=== PATIENT | female | born 1930 | race Caucasian/White ===

== ENCOUNTER 2017-05-03 17:08 | Observation (INO) | payer OTHER, BC ==
[2017-05-03] MEDS ORDERED: ACETAMINOPHEN 500 MG TABLET (FP) PO ONE (17:16)
[2017-05-03 17:33] VITALS: BMI 37.1
[2017-05-03 17:50] LABS: EOSINOPHIL 1.6 % (0-4.5); MCH 31.5 pg (25.7-33.7); MCHC 32.5 g/dl (32.0-36.0); MEAN PLT VOLUME 9.6 fl (7.5-11.1); NEUTROPHILS 64.4 % (42.8-82.8); PLATELET COUNT 226 K/MM3 (134-434); RDW 13.9 % (11.6-15.6); WHITE BLOOD COUNT 6.1 K/mm3 (4.0-10.0)
[2017-05-03] MEDS ORDERED: ACETAMINOPHEN 325 MG TABLET (FP) ONE (17:56)
--- NOTE | 2017-05-03 18:08 | PDOC ---
History of Present Illness <Cruz Curry - Last Filed: 05/03/17 18:08> - General History Source: Patient Exam Limitations: No Limitations - History of Present Illness Initial Comments: 05/03/17 18:09 The patient is an 86 year old female with past medical history of hypertension, hyperlipidemia, Afib (on Coumadin) who arrives to the ED from a nursing facility s/p mechanical fall just prior to arrival. The patient states she was using her walker and fell down, striking the back of her head. She denies any LOC, change in vision, focal deficits, nausea, or vomiting. The patient denies any pain to her hips or legs. She denies any chest pain or shortness of breath. The patient denies any fever or chills. PCP: Elva Lugo Cloud Physicist: Juan Dickson Car Dispatcher: Dr. Tello <Tiffany Chandra - Last Filed: 05/03/17 18:09> <Annmarie Parada - Last Filed: 05/03/17 20:23> <Tamika Bonner - Last Filed: 05/04/17 05:48> - General Chief Complaint: Injury Stated Complaint: FALL Time Seen by Provider: 05/03/17 17:14 Past History - Past Medical History Anemia: Yes Cancer: Yes (BREAST) Cardiac Disorders: Yes (ATRIAL FIB.) CVA: Yes Dementia: Yes HTN: Yes Hypercholesterolemia: Yes Suicide Attempt (Hx): No Thyroid Disease: Yes - Immunization History Immunization Up to Date: Yes - Psycho/Social/Smoking Cessation Hx Anxiety: No Suicidal Ideation: No Smoking History: Never smoked Have you smoked in the past 12 months: No If you are a former smoker, when did you quit?: 1989 Information on smoking cessation initiated: No Hx Alcohol Use: No Drug/Substance Use Hx: No Substance Use Type: None Hx Substance Use Treatment: No <Cruz Curry - Last Filed: 05/03/17 18:08> <Tiffany Chandra - Last Filed: 05/03/17 18:09> <Annmarie Parada - Last Filed: 05/03/17 20:23> <Tamika Bonner - Last Filed: 05/04/17 05:48> - Past Medical History Allergies/Adverse Reactions: Allergies Allergy/AdvReac Type Severity Reaction Status Date / Time Penicillins Allergy Verified 05/03/17 17:16 codeine AdvReac Verified 05/03/17 17:16 epinephrine AdvReac Verified 05/03/17 17:16 Home Medications: Ambulatory Orders Acetaminophen [Mapap] 1,000 mg PO BID PRN 05/03/17 Atorvastatin Ca [Lipitor] 10 mg PO HS 05/03/17 Calcium Citrate/Magnesium/D3 [Calcium Citrate Chewable Wafer] 3 each PO BID 12/19 Cholecalciferol (Vitamin D3) [Vitamin D3] 2,000 unit PO DAILY 05/03/17 Diltiazem Cd [Cardizem Cd -] 180 mg PO DAILY 05/03/17 Escitalopram Oxalate [Lexapro -] 5 mg PO DAILY 05/03/17 Furosemide [Lasix -] 40 mg PO DAILY 05/03/17 Lactase 6,000 unit PO BID 05/03/17 Metoprolol Succinate [Toprol Xl -] 25 mg PO DAILY 05/03/17 Multivitamin [Poly-Vitamin] 1 each PO DAILY 05/03/17 Spironolactone 12.5 mg PO DAILY 05/03/17 Warfarin Sodium [Coumadin] 5 mg PO SUMO 05/03/17 Warfarin Sodium [Coumadin] 7.5 mg PO [id number] 05/03/17 Review of Systems - Review of Systems Able to Perform ROS?: Yes Comments:: 05/03/17 18:09 GENERAL/CONSTITUTIONAL: No fever or chills. No weakness. HEAD, EYES, EARS, NOSE AND THROAT: No change in vision. No ear pain or discharge. No sore throat. CARDIOVASCULAR: No chest pain or shortness of breath. RESPIRATORY: No cough, wheezing, or hemoptysis. GASTROINTESTINAL: No nausea, vomiting, diarrhea or constipation. GENITOURINARY: No dysuria, frequency, or change in urination. MUSCULOSKELETAL: No joint or muscle swelling or pain. No neck or back pain. SKIN: No rash NEUROLOGIC: No headache, vertigo, loss of consciousness, or change in strength/ sensation. ENDOCRINE: No increased thirst. No abnormal weight change. HEMATOLOGIC/LYMPHATIC: No anemia, easy bleeding, or history of blood clots. ALLERGIC/IMMUNOLOGIC: No hives or skin allergy. All Other Systems: Reviewed and Negative <Tiffany Chandra - Last Filed: 05/03/17 18:09> *Physical Exam - Vital Signs Last Vital Signs Temp Pulse Resp BP Pulse Ox 97.6 F 90 18 136/83 96 05/03/17 17:12 05/03/17 17:12 05/03/17 17:12 05/03/17 17:12 05/03/17 17:12 <AntoinetteCruz - Last Filed: 05/03/17 18:08> - Vital Signs Last Vital Signs Temp Pulse Resp BP Pulse Ox 97.6 F 90 18 136/83 96 05/03/17 17:12 05/03/17 17:12 05/03/17 17:12 05/03/17 17:12 05/03/17 17:12 - Physical Exam Comments: 05/03/17 18:10 GENERAL: Awake, alert, and fully oriented, in no acute distress HEAD: No signs of trauma EYES: PERRLA, EOMI, sclera anicteric, conjunctiva clear ENT: Auricles normal inspection, hearing grossly normal, nares patent, oropharynx clear without exudates. Moist mucosa NECK: Normal ROM, supple, no lymphadenopathy, JVD, or masses LUNGS: Breath sounds equal, clear to auscultation bilaterally. No wheezes, and no crackles HEART: Irregularly irregular. normal S1 and S2, no murmurs, rubs or gallops ABDOMEN: Soft, nontender, normoactive bowel sounds. No guarding, no rebound. No masses EXTREMITIES: Normal range of motion, no edema. No clubbing or cyanosis. No cords, erythema, or tenderness NEUROLOGICAL: Cranial nerves II through XII grossly intact. Normal speech, normal gait SKIN: Hematoma to left occipital ridge. Warm, Dry, normal turgor <Tiffany Chandra - Last Filed: 05/03/17 18:09> - Vital Signs Last Vital Signs Temp Pulse Resp BP Pulse Ox 98.2 F 84 18 141/84 97 05/03/17 20:09 05/03/17 20:09 05/03/17 20:09 05/03/17 20:09 05/03/17 20:09 <Annmarie Parada - Last Filed: 05/03/17 20:23> - Vital Signs Last Vital Signs Temp Pulse Resp BP Pulse Ox 97.6 F 90 18 136/83 96 05/03/17 17:12 05/03/17 17:12 05/03/17 17:12 05/03/17 17:12 05/03/17 17:12 <Tamika Bonner - Last Filed: 05/04/17 05:48> Heart Score/ECG Review #1 05/03/17 20:22 EKG obtained 17:26. Normal sinus rhythm at 90 bpm. Left ventricular hypertrophy with repolarization abnormality. Abnormal ECG. <Annmarie Parada - Last Filed: 05/03/17 20:23> ED Treatment Course - LABORATORY CBC & Chemistry Diagram: 05/03/17 17:44 05/03/17 17:44 - ADDITIONAL ORDERS Additional order review: 05/03/17 17:44 RBC 4.69 MCV 97.0 H MCHC 32.5 RDW 13.9 D MPV 9.6 D Neutrophils % 64.4 Lymphocytes % 19.9 Monocytes % 13.1 H Eosinophils % 1.6 Basophils % 1.0 - RADIOLOGY Radiology Studies Ordered: Category Date Time Status HEAD CT WITHOUT CONTRAST [CT] Stat CT Scan 05/03/17 17:16 Ordered CHEST X-RAY PORTABLE* [RAD] Stat Radiology 05/03/17 17:16 Taken - Medications Given in the ED: ED Medications Discontinued Medications Generic Name Dose Route Start Last Admin Trade Name Freq PRN Reason Stop Dose Admin Acetaminophen 1,000 mg 05/03/17 17:16 05/03/17 18:02 Tylenol - PO 05/03/17 17:17 1,000 mg ONCE ONE Administration <Cruz Curry - Last Filed: 05/03/17 18:08> - LABORATORY CBC & Chemistry Diagram: 05/03/17 17:44 05/03/17 17:44 - ADDITIONAL ORDERS Additional order review: 05/03/17 17:44 RBC 4.69 MCV 97.0 H MCHC 32.5 RDW 13.9 D MPV 9.6 D Neutrophils % 64.4 Lymphocytes % 19.9 Monocytes % 13.1 H Eosinophils % 1.6 Basophils % 1.0 - Medications Given in the ED: ED Medications Discontinued Medications Generic Name Dose Route Start Last Admin Trade Name Freq PRN Reason Stop Dose Admin Acetaminophen 1,000 mg 05/03/17 17:16 05/03/17 18:02 Tylenol - PO 05/03/17 17:17 1,000 mg ONCE ONE Administration <Tiffany Chandra - Last Filed: 05/03/17 18:09> - LABORATORY CBC & Chemistry Diagram: 05/03/17 17:44 05/03/17 17:44 - ADDITIONAL ORDERS Additional order review: Laboratory Results 05/03/17 05/03/17 05/03/17 18:05 17:44 17:44 INR 2.17 H D Sodium 136 Potassium 4.3 Chloride 97 L Carbon Dioxide 31 Anion Gap 8 BUN 25 H Creatinine 0.8 Creat Clearance w eGFR > 60 Random Glucose 92 Calcium 9.1 Total Bilirubin 0.8 D AST 34 D ALT 32 D Alkaline Phosphatase 107 D Creatine Kinase 272 H D CK-MB (CK-2) 3.705 H Troponin I 0.26 H B-Natriuretic Peptide 1198.84 H Total Protein 8.2 Albumin 4.1 Blood Type B NEGATIVE Antibody Screen Positive H 05/03/17 17:44 RBC 4.69 MCV 97.0 H MCHC 32.5 RDW 13.9 D MPV 9.6 D Neutrophils % 64.4 Lymphocytes % 19.9 Monocytes % 13.1 H Eosinophils % 1.6 Basophils % 1.0 - Medications Given in the ED: ED Medications Discontinued Medications Generic Name Dose Route Start Last Admin Trade Name Freq PRN Reason Stop Dose Admin Acetaminophen 1,000 mg 05/03/17 17:16 05/03/17 18:02 Tylenol - PO 05/03/17 17:17 1,000 mg ONCE ONE Administration <Annmarie Parada - Last Filed: 05/03/17 20:23> - LABORATORY CBC & Chemistry Diagram: 05/03/17 17:44 05/03/17 17:44 - ADDITIONAL ORDERS Additional order review: Laboratory Results 05/03/17 05/03/17 05/03/17 18:05 17:44 17:44 INR 2.17 H D Sodium 136 Potassium 4.3 Chloride 97 L Carbon Dioxide 31 Anion Gap 8 BUN 25 H Creatinine 0.8 Creat Clearance w eGFR > 60 Random Glucose 92 Calcium 9.1 Total Bilirubin 0.8 D AST 34 D ALT 32 D Alkaline Phosphatase 107 D Creatine Kinase 272 H D CK-MB (CK-2) 3.705 H Troponin I 0.26 H B-Natriuretic Peptide 1198.84 H Total Protein 8.2 Albumin 4.1 Blood Type B NEGATIVE Antibody Screen Positive H 05/03/17 17:44 RBC 4.69 MCV 97.0 H MCHC 32.5 RDW 13.9 D MPV 9.6 D Neutrophils % 64.4 Lymphocytes % 19.9 Monocytes % 13.1 H Eosinophils % 1.6 Basophils % 1.0 - Medications Given in the ED: ED Medications Discontinued Medications Generic Name Dose Route Start Last Admin Trade Name Amelia PRN Reason Stop Dose Admin Acetaminophen 1,000 mg 05/03/17 17:16 05/03/17 18:02 Tylenol - PO 05/03/17 17:17 1,000 mg ONCE ONE Administration <Tamika Bonner - Last Filed: 05/04/17 05:48> Medical Decision Making - Medical Decision Making 05/03/17 19:21 Patient Name: Mecca Allen THIS IS A PRELIMINARY REPORT FROM [facility] EXAM: CT head without contrast IMAGES: 167 DATE OF SERVICE: 2017-05-03 17:43: 41.0 HISTORY:Status post fall. Occipital blunt force trauma. COMPARISON: None. FINDINGS: 1. There is no evidence of an acute intracranial process, intracranial hemorrhage or mass effect. White matter changes are most suggestive of chronic post ischemic demyelination/small vessel disease. Small collections of low attenuation along the falx are most consistent with the appearance of collections of fat (normal variant). There is an approximately 9 mm extra-axial calcified mass in the left frontal parafalcine region. 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 2. Ventricular size is concordant with the degree of atrophy. 3. The visualized portions of the orbits, paranasal and mastoid sinuses are unremarkable. 4. No evidence of fracture. THIS DOCUMENT HAS BEEN ELECTRONICALLY SIGNED Blanca Marinelli MD 05/04/17 05:47 Pt has elevated troponin and cardiac enzymes and she will be admitted to telemetry. Her raveler will be consulted. INR is therapeutic, as a result we will not further treat with heparin. <Tamika Bonner - Last Filed: 05/04/17 05:48> *DC/Admit/Observation/Transfer - Attestations Physician Attestion: 05/03/17 18:08 I, Dr. Cruz Curry, attest that this document has been prepared under my direction and personally reviewed by me in its entirety. I further attest, that it accurately reflects all work, treatment, procedures and medical decision -making performed by me. <Cruz Curry - Last Filed: 05/03/17 18:08> - Attestations Scribe Attestion: 05/03/17 18:12 Documentation prepared by Tiffany Chandra, acting as medical surgical tech for Cruz Curry DO. <Tiffany Chandra - Last Filed: 05/03/17 18:09> - Attestations Scribe Attestion: 05/03/17 20:23 Documentation prepared by Annmarie Parada, acting as medical surgical tech for Tamika Bonner MD. <Annmarie Parada - Last Filed: 05/03/17 20:23> - Discharge Dispostion Admit: Yes <Tamika Bonner - Last Filed: 05/04/17 05:48> Diagnosis at time of Disposition: Myocardial infarction, Closed head injury, Fall - Discharge Dispostion Condition at time of disposition: Guarded - Referrals
[2017-05-03 18:14] LABS: ALBUMIN 4.1 g/dl (3.4-5.0); ANION GAP 8 (8-16); BILIRUBIN,TOTAL 0.8 mg/dL (0.2-1.0); CALCIUM 9.1 mg/dL (8.5-10.1); CO2 31 mmol/L (21-32); CREATININE 0.8 mg/dL (0.55-1.02); GLUCOSE,RANDOM 92 mg/dL (74-106); SGOT/AST 34 U/L (15-37); SGPT/ALT 32 U/L (12-78); TOT PROT 8.2 g/dl (6.4-8.2)
[2017-05-03 18:16] LABS: ALK PHOS 107 U/L (45-117)
[2017-05-03 18:17] LABS: TROPONIN I 0.26 ng/ml (0.00-0.05)
[2017-05-03 18:23] LABS: INR 2.17 (0.82-1.09); PROTHROMBIN TIME (PATIENT) 24.3 SEC (9.98-11.88)
--- NOTE | 2017-05-03 19:32 | PN ---
Teaching Attending Note Name of Resident: Venus Garvey ATTENDING PHYSICIAN STATEMENT I saw and evaluated the patient. I reviewed the resident's note and discussed the case with the resident. I agree with the resident's findings and plan as documented. SUBJECTIVE: 86 F with pmhx of HTN, HLD, Afib (on Coumadin), hx of prior falls who presents post mechanical fall. No chest paib, pressure or shortness of breath OBJECTIVE: Physical: VS: Vital Signs Period Temp Pulse Resp BP Sys/Davis Pulse Ox Last 24 Hr 97.6 F 90 18 136/83 96 GEN: NAD, resting in bed HEENT: NCAT, PERRL,tenderness L. occipital area CARD: RRR S1, S2 RESP: CTAB ABD: BS X4, NTD to palpation EXT: - C/C/E CBCD WBC 6.1 K/mm3 (4.0-10.0) 05/03/17 17:44 RBC 4.69 M/mm3 (3.60-5.2) 05/03/17 17:44 Hgb 14.8 GM/dL (10.7-15.3) D 05/03/17 17:44 Hct 45.4 % (32.4-45.2) H D 05/03/17 17:44 MCV 97.0 fl (80-96) H 05/03/17 17:44 MCHC 32.5 g/dl (32.0-36.0) 05/03/17 17:44 RDW 13.9 % (11.6-15.6) D 05/03/17 17:44 Plt Count 226 K/MM3 (134-434) 05/03/17 17:44 MPV 9.6 fl (7.5-11.1) D 05/03/17 17:44 CMP Sodium 136 mmol/L (136-145) 05/03/17 17:44 Potassium 4.3 mmol/L (3.5-5.1) 05/03/17 17:44 Chloride 97 mmol/L (98-107) L 05/03/17 17:44 Carbon Dioxide 31 mmol/L (21-32) 05/03/17 17:44 Anion Gap 8 (8-16) 05/03/17 17:44 BUN 25 mg/dL (7-18) H 07/02/17 17:44 Creatinine 0.8 mg/dL (0.55-1.02) 05/03/17 17:44 Creat Clearance w eGFR > 60 (>60) 05/03/17 17:44 Random Glucose 92 mg/dL (74-106) 05/03/17 17:44 Calcium 9.1 mg/dL (8.5-10.1) 05/03/17 17:44 Total Bilirubin 0.8 mg/dL (0.2-1.0) D 05/03/17 17:44 AST 34 U/L (15-37) D 05/03/17 17:44 ALT 32 U/L (12-78) D 05/03/17 17:44 Alkaline Phosphatase 107 U/L (45-117) D 05/03/17 17:44 Total Protein 8.2 g/dl (6.4-8.2) 05/03/17 17:44 Albumin 4.1 g/dl (3.4-5.0) 05/03/17 17:44 CARDIAC ENZYMES Creatine Kinase 272 IU/L (26-192) H D 05/03/17 17:44 Troponin I 0.26 ng/ml (0.00-0.05) H 05/03/17 17:44 CT Head- Negative for any acute process 9 mm calcified meningioma EKG: No acute ST-T changes M: CT head without contrast IMAGES: 167 DATE OF SERVICE: 2017-05-03 17:43: 41.0 HISTORY:Status post fall. Occipital blunt force trauma. COMPARISON: None. FINDINGS: 1. There is no evidence of an acute intracranial process, intracranial hemorrhage or mass effect. White matter changes are most suggestive of chronic post ischemic demyelination/small vessel disease. Small collections of low attenuation along the falx are most consistent with the appearance of collections of fat (normal variant). There is an approximately 9 mm extra-axial calcified mass in the left frontal parafalcine region. 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 2. Ventricular size is concordant with the degree of atrophy. 3. The visualized portions of the orbits, paranasal and mastoid sinuses are unremarkable. 4. No evidence of fracture. THIS DOCUMENT HAS BEEN ELECTRONICALLY SIGNED Blanca Marinelli MD ASSESSMENT AND PLAN: 86 F with HTN, HLD, Afib (on Coumadin) who presents post mechanical fall. 1.) Mechanical fall - Hold coumadin - Repeat CT Head in 12 hours - Repeat CBC/ Coags in AM - Type and screen - PT eval - Fall Percautions 2.) Increased Troponin - Mild, Possible demand - Trend repeat EKG- Echo complete - Monitor on tele - Cardiology consult 3.) HTN - C/W home meds 4.) Afib - C/w home meds - [id number] - Hold Coumadin for now in light of fall, cardio eval for cont Coumadin with increased falls 5.) Diastolic CHF - Compensated 6.) DVt Ppx - Low risk -SCD Rest as per resident note Place in Med- Tele
--- NOTE | 2017-05-03 20:17 | HP ---
CHIEF COMPLAINT: Mechanical Fall PCP: Dr. Elva Lugo HISTORY OF PRESENT ILLNESS: Patient is an 86 year old female with a significant PMHx of multiple prior falls , A.fib (On Coumadin), prior CVA, Diastolic CHF who was brought from [facility] s/p mechanical fall. Patient reports using a walker at baseline. Patient states today around 15:00 she was trying to open the door when she lost her balance and fell down, hitting the back of her head. Patient denies any dizziness, loss of consciousness, change in vision, vertigo, aura, seizure before, during or after the fall. Patient however denies any fever, chills, nausea, vomiting, acute vision changes, dizziness, headaches, chest pain, palpitations, diaphoresis, shortness of breath. PHYSICAL EXAMINATION Vital Signs - 24 hr 05/03/17 05/03/17 05/03/17 17:12 19:59 20:09 Temperature 97.6 F 98.2 F Pulse Rate 90 Pulse Rate [ 84 Right Radial] Respiratory 18 18 18 Rate Blood Pressure 136/83 Blood Pressure 141/84 [Left Arm] O2 Sat by Pulse 96 97 Oximetry (%) GENERAL: Awake, alert, and fully oriented, in no acute distress. HEAD: Normal with no signs of trauma. No hematoma. EYES: (-) [place] eyes EARS, NOSE, THROAT: (-) Liang's sign, Moist mucous membranes. NECK: Normal range of motion, supple without lymphadenopathy, JVD, or masses. LUNGS: Breath sounds equal, clear to auscultation bilaterally. No wheezes, and no crackles. No accessory muscle use. HEART: Regular rate and rhythm, normal S1 and S2 without murmur, rub or gallop. ABDOMEN: Soft, nontender, not distended, normoactive bowel sounds, no guarding, no rebound, no masses. LOWER EXTREMITIES: Chronic venous stasis. 2+ pulses, No peripheral edema. IMAGES: Head CT (05/03/17): 1. There is no evidence of an acute intracranial process, intracranial hemorrhage or mass effect. White matter changes are most suggestive of chronic post ischemic demyelination/small vessel disease. Small collections of low attenuation along the falx are most consistent with the appearance of collections of fat (normal variant). There is an approximately 9 mm extra-axial calcified mass in the left frontal parafalcine region. 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 2. Ventricular size is concordant with the degree of atrophy. 3. The visualized portions of the orbits, paranasal and mastoid sinuses are unremarkable. 4. No evidence of fracture. Chest X-Ray (05/03/17): No acute pathology ASSESSMENT/PLAN: Patient is an 86 year old female with a PMHx of HTN, HLD, A.FIB (On Coumadin), Frequent falls, Diastolic CHF, Depression who presents s/p fall and was found to have elevated troponin. Patient admitted for further monitoring and management. Head Trauma s/p Mechanical Fall-Acute -CT negative for hemorrhage or acute pathology -Repeat CT in 12 hours for any changes -Type and Screen with repeat CBC and coagulations -Hold Anticoagulation Warfarin. Will discuss with cardiology on risks and benefits of stopping AC due to fall risk -Fall precaution -PT -Cardiology consult placed Elevated Troponins-Acute -Initial trop 0.26. Second 0.25, Will repeat third in 6 hours -Repeat EKG in the morning -ECHO ordered -Cardiology consult placed -Continue Cardiac Monitoring A.Fib On Coumadin-Chronic -CHADSVASC score of 7 -Will Hold Coumadin due to patient's high fall risk -Continue home medications Cardizem for rate control Diastolic Heart Failure- Chronic -In no acute exacerbation -ECHO ordered -Continue home medications Lasix, Spironolactone, Metoprolol HTN- Continue with home medication Metoprolol. Monitor BP HLD- Continue with florencia medication Lipitor Depression- Continue with Florencia medication Lexapro Prophylaxis- SCD's for DVT. Coumadin on Hold Disposition- Awaiting cardiology consult Visit type - Emergency Visit Emergency Visit: Yes ED Registration Date: 05/03/17 Care time: The patient presented to the Emergency Department on the above date and was hospitalized for further evaluation of their emergent condition. - New Patient This patient is new to me today: Yes Date on this admission: 05/04/17 - Critical Care Critical Care patient: No
[2017-05-03] MEDS ORDERED: ACETAMINOPHEN 500 MG TABLET (FP) PO PRN (21:10)
[2017-05-03] MEDS ORDERED: D3 PO SCH (22:00)
[2017-05-03] MEDS ORDERED: LACTASE PO SCH (22:00)
[2017-05-03] MEDS ORDERED: [UNRECOGNIZED DRUG - OTHER] PO SCH (22:00)
[2017-05-03] MEDS ORDERED: ATORVASTATIN CA 10 MG TABLET (FP) PO SCH (22:00)
[2017-05-03] MEDS ORDERED: MAGNESIUM PO SCH (22:00)
[2017-05-03] MEDS ORDERED: CALCIUM CITRATE PO SCH (22:00)
--- NOTE | 2017-05-03 22:23 | HP ---
CHIEF COMPLAINT: status post mechanical fall was presented to to the ER from alf. PCP: Elva Lugo HISTORY OF PRESENT ILLNESS:An 86 year old white female with past medical history of hypertension, hyperlipidemia, Afib (on Coumadin) who arrives to the ED from a nursing facility([facility] nursing [facility]) s/p mechanical fall around 3 pm today. The patient states she was using her walker to open the door and fell down, hitting the back of her head. She denies any LOC,headache, change in vision,Aura, or any focal deficits,She denies nausea,vomiting,orthostatic hypotension, dizziness or vertigo. The patient denies any pain to her hips or legs.she reports multiple mechanical falls last year. She denies any chest pain or shortness of breath. The patient denies any fever or chills.She denies any history of seizures, light headedness, abdominal pain, diarrhea or constipation. No urinary symptoms were reported. ER course was notable for: (1) Troponin was found to be little elevated 0.26 (2) Head CT scan was ordered which found to be negative for any acute changes or hemorrhage. (3) Acetaminophen 1000 mg PO once was given on admission . Recent Travel:No PAST MEDICAL HISTORY: she has a history of uncontrolled HTN, Afib, Hyperlipidemia,Diastolic CHF,sleep apnea, right breast cancer 6 years ago(s/p lumpectomy), Lower extremities cellulites last year. PAST SURGICAL HISTORY: Right breast lumpectomy 6 years ago. Social History: Smokin pack/day for 30 years, she quit 40 years ago. Alcohol:No Drugs: No Family History: Mother history of Alzheimer.Father history of HTN and COPD. Allergies: Penicillins Allergy (Verified 05/03/17 17:16) codeine Adverse Reaction (Verified 05/03/17 17:16) epinephrine Adverse Reaction (Verified 05/03/17 17:16) HOME MEDICATIONS: Home Medications Medication Instructions Recorded Acetaminophen [Mapap] 1,000 mg PO BID PRN 05/03/17 Atorvastatin Ca [Lipitor] 10 mg PO HS 05/03/17 Calcium Citrate/Magnesium/D3 3 each PO BID 05/03/17 [Calcium Citrate Chewable Wafer] Cholecalciferol (Vitamin D3) 2,000 unit PO DAILY 05/03/17 [Vitamin D3] Diltiazem Cd [Cardizem Cd -] 180 mg PO DAILY 05/03/17 Escitalopram Oxalate [Lexapro -] 5 mg PO DAILY 05/03/17 Furosemide [Lasix -] 40 mg PO DAILY 05/03/17 Lactase 6,000 unit PO BID 05/03/17 Metoprolol Succinate [Toprol Xl -] 25 mg PO DAILY 05/03/17 Multivitamin [Poly-Vitamin] 1 each PO DAILY 05/03/17 Spironolactone 12.5 mg PO DAILY 05/03/17 Warfarin Sodium [Coumadin] 5 mg PO SUMO 05/03/17 Warfarin Sodium [Coumadin] 7.5 mg PO WE05/03/17 REVIEW OF SYSTEMS CONSTITUTIONAL: Absent: No fever, chills, diaphoresis, generalized weakness, malaise, loss of appetite, weight change HEENT: Absent: No rhinorrhea, nasal congestion, throat pain, throat swelling, difficulty swallowing, mouth swelling, ear pain, eye pain, visual changes CARDIOVASCULAR: Absent: No chest pain, syncope, palpitations, + Afib ,no lightheadedness, trace peripheral edema RESPIRATORY: Absent: NO cough, shortness of breath,, no wheezing, stridor, hemoptysis GASTROINTESTINAL: Absent: NO abdominal pain, abdominal distension, nausea, vomiting, diarrhea, constipation, melena, hematochezia GENITOURINARY: Absent:No dysuria, frequency, urgency, hesitancy, hematuria, flank pain, genital pain MUSCULOSKELETAL: Absent: NO myalgia, arthralgia, joint swelling, back pain, neck pain, H/O right shoulder rotator cuff tear. SKIN: Absent: No rash, itching, pallor, B/L LE erythema . HEMATOLOGIC/IMMUNOLOGIC: patient is on Coumadin,NO lymphadenopathy, no recent infections ENDOCRINE: denies unexplained weight gain, unexplained weight loss, heat intolerance, cold intolerance NEUROLOGIC: Absent: No headache, focal weakness or paresthesias, dizziness, + unsteady gait , no seizure, mental status changes, bladder or bowel incontinence PSYCHIATRIC: H/Oanxiety/depression,No suicidal or homicidal ideation, No hallucinations. PHYSICAL EXAMINATION Vital Signs - 24 hr 05/03/17 05/03/17 19:59 20:09 Temperature 98.2 F Pulse Rate [ 84 Right Radial] Respiratory 18 18 Rate Blood Pressure 141/84 [Left Arm] O2 Sat by Pulse 97 Oximetry (%) GENERAL: Awake, alert, and fully oriented, in no acute distress. HEAD: Normal with local tenderness on the right parietal area.but no hematoma or laceration.. EYES: (-) [place] eye,Pupils equal, round and reactive to light, extraocular movements intact, sclera anicteric, conjunctiva clear. No lid lag. EARS, NOSE, THROAT: Ears normal, nares patent, oropharynx clear without exudates. Moist mucous membranes. NECK: Normal range of motion, supple without lymphadenopathy, JVD, or masses. LUNGS: Breath sounds equal, clear to auscultation bilaterally. No wheezes, and no crackles. No accessory muscle use. HEART: Tachycardia, normal S1 and S2 without murmur, rub or gallop. ABDOMEN: Soft, nontender, not distended, normoactive bowel sounds, no guarding, no rebound, no masses. No hepatomegaly or splenomegaly. MUSCULOSKELETAL: limited range of motion compared to normal ROM of left side. No bony deformities or tenderness. No CVA tenderness. UPPER EXTREMITIES: 2+ pulses, warm, well-perfused. No cyanosis. No clubbing. No peripheral edema. LOWER EXTREMITIES: 2+ pulses, warm, well-perfused. No calf tenderness. 1+ peripheral edema,B/L chronic venous stasis. NEUROLOGICAL: Cranial nerves II-XII intact. Normal speech. PSYCHIATRIC: Cooperative. Good eye contact. Appropriate mood and affect. SKIN: Warm, dry, normal turgor,B/L erythema on lower extremities, normal capillary refill. Laboratory Tests 05/03/17 05/03/17 05/03/17 17:44 17:44 17:44 WBC 6.1 RBC 4.69 Hgb 14.8 D Hct 45.4 H D MCV 97.0 H MCHC 32.5 RDW 13.9 D Plt Count 226 MPV 9.6 D Neutrophils % 64.4 Lymphocytes % 19.9 Monocytes % 13.1 H Eosinophils % 1.6 Basophils % 1.0 INR Sodium 136 Potassium 4.3 Chloride 97 L Carbon Dioxide 31 Anion Gap 8 BUN 25 H Creatinine 0.8 Creat Clearance w eGFR > 60 Random Glucose 92 Calcium 9.1 Total Bilirubin 0.8 D AST 34 D ALT 32 D Alkaline Phosphatase 107 D Creatine Kinase 272 H D CK-MB (CK-2) 3.705 H Troponin I 0.26 H B-Natriuretic Peptide 1198.84 H Total Protein 8.2 Albumin 4.1 Blood Type B NEGATIVE Antibody Screen Positive H Antibody Identification Anti-D Antigen Identification Y 05/03/17 05/03/17 18:05 23:55 WBC RBC Hgb Hct MCV MCHC RDW Plt Count MPV Neutrophils % Lymphocytes % Monocytes % Eosinophils % Basophils % INR 2.17 H D Sodium Potassium Chloride Carbon Dioxide Anion Gap BUN Creatinine Creat Clearance w eGFR Random Glucose Calcium Total Bilirubin AST ALT Alkaline Phosphatase Creatine Kinase CK-MB (CK-2) Troponin I 0.25 H B-Natriuretic Peptide Total Protein Albumin Blood Type Antibody Screen Antibody Identification Antigen Identification IMAGES: Head CT (05/03/17): 1. There is no evidence of an acute intracranial process, intracranial hemorrhage or mass effect. White matter changes are most suggestive of chronic post ischemic demyelination/small vessel disease. Small collections of low attenuation along the falx are most consistent with the appearance of collections of fat (normal variant). There is an approximately 9 mm extra-axial calcified mass in the left frontal parafalcine region. 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 2. Ventricular size is concordant with the degree of atrophy. 3. The visualized portions of the orbits, paranasal and mastoid sinuses are unremarkable. 4. No evidence of fracture. 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 1- S/P mechanical fall(on Coumadin ,INR 2.17): she use walker on her basis.with multiple mechanical fall during the last year. * Admit to telemtry unit for observation * ChaDs vasc score of 7. * Fall precaution * Head CT was order which came negative for any acute intracranial process , hemorrhage or mass effect.will repeat Head CT in 12hours. * Physical therapy. * will hold coumadin for 24 hours * will discuss risk and benefit of anticoagulation for Afib vs frequent fall. * Repeat CBC/ Coags in AM * Type and screen 2- Elevated troponin 0.26 most likely 2/2 cardiac ischemic demand probably 2/2 stress : * Admit to telemetry unit for observation * 12 lead EKG * Repeat troponin at 11.30 PM(0.25) and 5.30 Am . * Cardiac monitoring * BP monitoring * Cardiac consult * * 3- Chronic Diastolic CHF with no acute exacerbation, no recent cardiac U/C * Cardiac U/C placed * Cardiac Consult * F/U I/O * Low sodium diet * Continue Home med 4- High Blood pressure, chronic, uncontrolled HTN per patient with reading at 141/84 on admission * Low sodium diet * continue home meds: * Furosemide [Lasix -]40 mg PO DAILY * Byfwspvvldkalo82.5 mg PO DAILY * Metoprolol Succinate [Toprol Xl -]25 mg PO DAILY 5- Afib , Chronic: patient has a history of chronic Afib and is on Diltiazim 180 mg Po Daily.he has tachy sinus rhythm on admission. * ChaDs vask score of 7 * will hold Coumadin due to recent fall * cardiac consultation. * repeat 12 lead EKG in the morning. * continue home med Diltiazem Cd [Cardizem Cd -]180 mg PO DAILY 6- Hyperlipidemia, chronic, on Lipitor 10 mg, PO HS . * will f/U lipid panel * contine home meds. 7 -Right shoulder pain 2/2 rotator cuff tear :chronic, with limitied ROM comapared to the left. * continue PT * Fall precaution. * 8-Propylaxis : -High risk . SCD's for DVT. Patient on Coumadin but will hold due to fall risk. -No GI prophylaxis indicated F/E/N Fluidswill encourageoral intake. Electolytes WNL Nutrition: low sodium diet. Visit type - Emergency Visit Emergency Visit: Yes ED Registration Date: 05/03/17 Care time: The patient presented to the Emergency Department on the above date and was hospitalized for further evaluation of their emergent condition. - New Patient This patient is new to me today: Yes Date on this admission: 05/03/17 - Critical Care Critical Care patient: No
[2017-05-04 07:23] LABS: MCH 32.3 pg (25.7-33.7); MEAN PLT VOLUME 9.9 fl (7.5-11.1); PLATELET COUNT 203 K/MM3 (134-434); RDW 13.7 % (11.6-15.6); WHITE BLOOD COUNT 7.7 K/mm3 (4.0-10.0)
[2017-05-04 08:01] LABS: TROPONIN I 0.23 ng/ml (0.00-0.05)
[2017-05-04 08:05] LABS: INR 1.99 (0.82-1.09); PROTHROMBIN TIME (PATIENT) 22.2 SEC (9.98-11.88)
--- NOTE | 2017-05-04 08:47 | CON.CARD ---
Consult Consult Specialty:: cardio Referred by:: hospitalist Reason for Consultation:: fall on coumadin - History of Present Illness Chief Complaint: fall History of Present Illness: 86 yo female here with mechanical fall when opening her door while using her walker. pt is followed closely by me in the office. has had infrequent falls (last was 1-2 yrs ago), uses walker with good compliance. has had recurrent occult GIB on AC, necessitating frequent discontinuation of warfarin. recently had cautery of duodenal ulcer 03/17, then recurrent anemia so had SBE with GI at [facility] showing no AVMs or other pathology--AC resumed, has been tolerating warfarin with INRs 1.8-2.5 in general for the past couple of months, with stable hgb (14 range) she has previously repeatedly declined LA appendage closure (Watchman) states the current episode happened b/c her legs gave out. they felt weak when walked to open the door. have been feeling weaker of late than usual. there was no dizzy/LH/presyncope or LOC. denies cp, palpitations with this episode or previously. chronic sob with activity is stable at longstanding baseline she says legs not signif swollen lately PMH: severe BRUCE--intolerant of CPAP diast chf permanent AF acute pulm toxicity with amio in past anemia HTN - Past Medical History Cardio/Vascular: Yes: AFIB, CHF (chronic diastolic) ...: No Endocrine: Yes: Hypothyroidism - Alcohol/Substance Use Hx Alcohol Use: No - Smoking History Smoking history: Never smoked Have you smoked in the past 12 months: No If you are a former smoker, when did you quit?: 1989 Home Medications - Allergies Allergies/Adverse Reactions: Allergies Allergy/AdvReac Type Severity Reaction Status Date / Time Penicillins Allergy Verified 05/03/17 17:16 codeine AdvReac Verified 05/03/17 17:16 epinephrine AdvReac Verified 05/03/17 17:16 - Home Medications Home Medications: Ambulatory Orders Acetaminophen [Mapap] 1,000 mg PO BID PRN 05/03/17 Atorvastatin Ca [Lipitor] 10 mg PO HS 05/03/17 Calcium Citrate/Magnesium/D3 [Calcium Citrate Chewable Wafer] 3 each PO BID 12/19 Cholecalciferol (Vitamin D3) [Vitamin D3] 2,000 unit PO DAILY 05/03/17 Diltiazem Cd [Cardizem Cd -] 180 mg PO DAILY 05/03/17 Escitalopram Oxalate [Lexapro -] 5 mg PO DAILY 05/03/17 Furosemide [Lasix -] 40 mg PO DAILY 05/03/17 Lactase 6,000 unit PO BID 05/03/17 Metoprolol Succinate [Toprol Xl -] 25 mg PO DAILY 05/03/17 Multivitamin [Poly-Vitamin] 1 each PO DAILY 05/03/17 Spironolactone 12.5 mg PO DAILY 05/03/17 Warfarin Sodium [Coumadin] 5 mg PO SUMO 05/03/17 Warfarin Sodium [Coumadin] 7.5 mg PO [id number] 05/03/17 Family Disease History - Family Disease History Family History: Denies (no cmp) Review of Systems - Review of Systems Constitutional: denies: Chills, Fever Eyes: denies: Eye Pain HENT: denies: Nasal Congestion Neck: denies: Stiffness Cardiovascular: denies: Palpitations Respiratory: denies: Orthopnea, PND Gastrointestinal: denies: Diarrhea, Rectal Bleeding Genitourinary: denies: Burning, Hematuria Musculoskeletal: denies: Muscle Pain Integumentary: denies: Rash Neurological: denies: Numbness, Seizure, Syncope Endocrine: denies: Excessive Sweating Hematology/Lymphatic: denies: Excessive Bleeding Vital Signs: Vital Signs Temperature 98 F 05/04/17 08:39 Pulse Rate 93 H 05/04/17 08:39 Respiratory Rate 20 05/04/17 08:39 Blood Pressure 118/76 05/04/17 08:39 O2 Sat by Pulse Oximetry (%) 97 05/03/17 21:00 Constitutional: Yes: No Distress, Obese Eyes: No: Sclera Icterus HENT: No: Nasal Congestion Neck: No: Decreased ROM Respiratory: Yes: CTA Bilaterally. No: Accessory Muscle Use, Rales, Wheezes Gastrointestinal: Yes: Normal Bowel Sounds. No: Distention, Hepatomegaly, Palpable Mass (tds habitus), Tenderness Cardiovascular: Yes: Pulse Irregular JVD: No Carotid Bruit: No PMI: Non-Displaced Heart Sounds: Yes: S1, S2. No: Gallop Murmur: No: Systolic Murmur, Diastolic Murmur Musculoskeletal: Yes: Other (No kyphosis) Extremities: No: Cool, Cyanosis Edema: No Peripheral Pulses: 2+ Left Carotid, 2+ Right Carotid, 2+ Left Doralis Pedis, 2+ Right Dorsalis Pedis Integumentary: No: Jaundice Neurological: Yes: Alert, Oriented (x3) Psychiatric: No: Agitated - Other Data Labs, Other Data: CBC, BMP 05/04/17 05:35 INR, PTT INR 1.99 (0.82-1.09) H 05/04/17 05:35 Troponin, BNP 05/03/17 05/04/17 05/04/17 23:55 05:35 05:35 Troponin I 0.25 H 0.23 H Cancelled Troponin, BNP 05/03/17 05/04/17 05/04/17 23:55 05:35 05:35 Troponin I 0.25 H 0.23 H Cancelled tele: AFL briefly to 120-140 at times this am (prior to receiving meds) Assessment/Plan CXR (gitig read): enlarged cardiac/aorta silhouette--entirely unchanged vs 2014. chronic incr'd interstitial markings prob unchanged when accounting for underpenetration of present film. no effusions, no chf CT head: no bleed or other acute pathology ECG: AFL, LVH with diffuse repol abnormalities--no change vs 06/17 MPI 03/17 (marcial): no STs. no isch. nl EF. no TID Echo 06/17: nl LV/EF. elevated LAP, short decel time. nl RV. L/DARREL. mod MR/TR. no RVSP. fall: -mechanical fall -has been relatively stable for a while now with good use of walker -however she remains with moderate falls risk -AC not prohibitive risk here, though there is some risk of recurrent fall/head trauma -d/w'd pt again that i would rec a strategy of LA appendage closure (Watchman device), both to avoid risk of falls/ICH and also to minimize recurrent GIBs/ starting and stopping AC--she is willing to reconsider as outpt, wishes to d/w her son some more -cont warfarin for now, with target INR 2-2.5 as doing elevated troponin: -trop 0.2 x 3--not c/w ACS -? sec to incr'd LV filling pressures -no ischemia eval warranted permanent afib/flutter: -rate controlled well for long time on current combo of dilt/BB, with resolution of her prior palpitations sx's -prior med intolerances limit options -tele here briefly rapid in spurts early this am, prior to administration of meds -cont same regimen, cont outpt monitoring of AF rate control as doing ( palpitations, and periodic holters--have been stable) -CHADS-VASC 5--AC vs RADHA closure, as disc'd above chronic diast chf: -well compensated long time on current outpt po lasix regimen (40 qd) -previous attempts to increase lasix to try to improve her chronic SOB sx's have failed (no wt decline, no improved sob, pt intolerance of urinary freq) -has chronic sob component related to obesity/deconditioning -BNP 1100, CXR unchanged without chf picture, no periph edema (likely chf sx in past) -clinically appears compensated -cont same lasix hld: -cont home statin htn: -controlled -cont home meds OK FOR D/C FROM [facility] P[facility].
[2017-05-04] MEDS ORDERED: ESCITALOPRAM OXALATE 10 MG TABLET (FP) PO SCH (10:00)
[2017-05-04] MEDS ORDERED: MULTIVITAMINS (DAILY MVI) TABLET (FP) PO SCH (10:00)
[2017-05-04] MEDS ORDERED: FUROSEMIDE 40 MG TABLET (FP) PO SCH (10:00)
[2017-05-04] MEDS ORDERED: METOPROLOL SUCCINATE 25 MG TAB.SR.24H (FP) PO SCH (10:00)
[2017-05-04] MEDS ORDERED: CHOLECALCIFEROL (VITAMIN D3) 1,000 UNIT TABLET (FP) PO SCH (10:00)
[2017-05-04] MEDS ORDERED: SPIRONOLACTONE 25 MG TABLET (FP) PO SCH (10:00)
--- NOTE | 2017-05-04 10:13 | EKG ---
Test Reason : Blood Pressure : / mmHG Vent. Rate : 093 BPM Atrial Rate : 093 BPM P-R Int : 178 ms QRS Dur : 098 ms QT Int : 372 ms P-R-T Axes : 151 -09 153 degrees QTc Int : 462 ms ATRIAL FLUTTER (SLOW) VS. ATRIAL TACHYCARDIA LEFT VENTRICULAR HYPERTROPHY WITH REPOLARIZATION ABNORMALITY NONSPECIFIC ST AND T WAVE ABNORMALITY ABNORMAL ECG WHEN COMPARED WITH ECG OF 03-MAY-2017 23:44, Confirmed by SARAH NICHOLS, ALIS ([id number]) on 05/04/2017 10:12:33 AM Referred By: CAMILO BOOTH Confirmed By:ALIS SMITH MD
--- NOTE | 2017-05-04 10:24 | EKG ---
Test Reason : Blood Pressure : / mmHG Vent. Rate : 090 BPM Atrial Rate : 180 BPM P-R Int : 000 ms QRS Dur : 100 ms QT Int : 384 ms P-R-T Axes : 239 -15 192 degrees QTc Int : 469 ms ATRIAL FLUTTER WITH 2:1 A-V CONDUCTION VS. ATRIAL TACHYCARDIA LEFT VENTRICULAR HYPERTROPHY WITH REPOLARIZATION ABNORMALITY ABNORMAL ECG WHEN COMPARED WITH ECG OF 03-MAY-2017 17:26, NO SIGNIFICANT CHANGE WAS FOUND Confirmed by ALIS SMITH MD ([id number]) on 05/04/2017 10:23:37 AM Referred By: Confirmed By:ALIS SMITH MD
--- NOTE | 2017-05-04 10:38 | EKG ---
Test Reason : Blood Pressure : / mmHG Vent. Rate : 090 BPM Atrial Rate : 090 BPM P-R Int : 182 ms QRS Dur : 098 ms QT Int : 354 ms P-R-T Axes : 092 -12 196 degrees QTc Int : 433 ms SLOW ATRIAL FLUTTER VS. ATRIAL TACHYCARDIA LEFT VENTRICULAR HYPERTROPHY WITH REPOLARIZATION ABNORMALITY ABNORMAL ECG WHEN COMPARED WITH ECG OF 09-JUN-2016 08:39, T WAVE VARIATION Confirmed by SARAH NICHOLS, ALIS ([id number]) on 05/04/2017 10:37:56 AM Referred By: Confirmed By:ALIS SMITH MD
--- NOTE | 2017-05-04 13:04 | PN ---
Teaching Attending Note Name of Resident: Saundra Chaudhry ATTENDING PHYSICIAN STATEMENT I saw and evaluated the patient. I reviewed the resident's note and discussed the case with the resident. I agree with the resident's findings and plan as documented. SUBJECTIVE:asymptomatic. states she tripped over her feet and fell. denies frequent falls. denies LOC, blurred vision/vision changes, palpitaitons, recent medication changes, N/V/C/D, cough, orthopnea, SOB on exertion or rest OBJECTIVE: Last Vital Signs Temp Pulse Resp BP Pulse Ox 98 F 93 H 20 118/76 96 05/04/17 08:39 05/04/17 08:39 05/04/17 08:39 05/04/17 08:39 05/04/17 08:00 General NAD CV S1 S2 + no murmur no carotid bruit Lungs CTA B/L no wheezing anteriorly Abdomen soft nT/ND Extremities no pedal edema ASSESSMENT AND PLAN: 86yo F with PMH HTN, afib on coumadin, dyslipidemia presented to the ER and was admitted after mechanical fall for observation 1. Mechanical fall- denies LOC or syncope. no events on ekg monitor tech. initial Head CT and on repeat negative for acute pathology. echo done and pending read. will have PT assessment although pt states she ambulates fine with RW. 2. Troponin leak- no signs of ACS. troponin flat at 0.23 x4. no event on ekg monitor tech. echo pending. evaluated by cardio and no ischemic workup necessary at this time 3. afib on coumadin- INR slightly subtherapeutic but did not receive coumadin last night. would resume. is candidate for Watchman procedure as stated by cardio. for pt to f/u as outpatient. cound coumadin due to high chadsvasc score and rate control 4. elevated BNP-likley falsely elevated in the elderly. appears euvolemic on exam 5. dyslipidemia- statin 6. d/c planning to [facility] pending echo result
[2017-05-04 15:55] VITALS: BP 112/65; PULSE 87; TEMP 99.1
--- NOTE | 2017-05-04 16:55 | DS ---
Physical Exam: SUBJECTIVE: Patient seen and examined today at bedside. No acute events overnight. Patient denies any other symptoms such as nausea, vomiting, diarrhea, shortness of breath or chest pain. OBJECTIVE: Vital Signs Period Temp Pulse Resp BP Sys/Davis Pulse Ox Last 24 Hr 97.6 F-99.1 F 84-93 18-20 112-141/65-90 96-97 PHYSICAL EXAM GENERAL: The patient is awake, alert, and fully oriented, in no acute distress. Resting comfortably, sitting in bed HEAD: normocephalic, tenderness elicited by pressing on the posterior portion of the head however no erythema, skin intact, no swelling, no fluctuance, no ecchymoses EYES: PERRL, extraocular movements intact, sclera anicteric, conjunctiva clear. ENT: oropharynx clear without exudates, moist mucous membranes. NECK: Trachea midline, full range of motion, supple. LUNGS: Breath sounds equal, clear to auscultation bilaterally, no wheezes, no crackles, no accessory muscle use. HEART: no palpitations, +Afib ABDOMEN: Soft, nontender, nondistended, normoactive bowel sounds, no guarding, no rebound, no hepatosplenomegaly, no masses. EXTREMITIES: 2+ posterior tibial pulses, warm, well-perfused, no edema. NEUROLOGICAL: Cranial nerves II through XII grossly intact. Normal speech, gait not observed. LABS Laboratory Tests 05/03/17 05/03/17 05/03/17 17:44 17:44 18:05 Hct 45.4 H D MCV 97.0 H Monocytes % 13.1 H INR 2.17 H D Chloride 97 L BUN 25 H Creatine Kinase 272 H D CK-MB (CK-2) 3.705 H Troponin I 0.26 H B-Natriuretic Peptide 1198.84 H 05/03/17 05/04/17 05/04/17 23:55 05:35 05:35 Hct MCV 98.0 H Monocytes % INR 1.99 H Chloride BUN Creatine Kinase CK-MB (CK-2) Troponin I 0.25 H B-Natriuretic Peptide 05/04/17 05/04/17 05:35 11:50 Hct MCV Monocytes % INR Chloride BUN Creatine Kinase CK-MB (CK-2) Troponin I 0.23 H 0.23 H B-Natriuretic Peptide Non-contrast Head CT on admission (May 03, 2017 at 17:43) No evidence of acute intracranial hemorrhage, edema, midline shift, mass effect , or skull fracture. No CT evidence of acute territorial infarction Repeat Head CT (May 04, 2017 at 2:26) No evidence of acute intracranial hemorrhage, edema, midline shift, mass effect , or skull fracture. No CT evidence of acute territorial infarction. HOSPITAL COURSE: Date of Admission:05/03/17 Date of Discharge: 05/04/17 Admit diagnosis: s/p mechanical fall Pre-admission course Patient is an 86 year old female with a significant PMHx of multiple prior falls , A.fib (On Coumadin), prior CVA, Diastolic CHF who was brought from [facility] s/p mechanical fall hitting her head (without losing consciousness) . Patient denies any dizziness, loss of consciousness, change in vision, vertigo, aura, seizure before, during or after the fall. Hospital course a non-contrast head CT was done to exclude any hemorrhage or intracranial pathology, which came back negative. A subsequent head CT was also found to be negative. Since patient had elevated troponin (above), which was trending down and determined to not be part of ACS. More likely due to demand ischemia. Cardiology was also consulted to determine the benefit of anticoagulation vs. her repeated falls. They recommended LA appendage closure (Watchman device) to be discussed with the patient and family as an outpatient. Plan is to continue warfarin for now with target INR 2-2.5. Patient is to resume her home medications. ECHO report revealed normal LV size, thickness and function, and trace tricupsid regurgitation. Minutes to complete discharge: 32 Discharge Summary Reason For Visit: FALL, MYOCARDIAL INFRACTION Current Active Problems Accidental fall (Acute) Atrial fibrillation (Chronic) Hypertension (Chronic) Condition: Stable - Instructions Diet, Activity, Other Instructions: We suggest you use caution while moving in your home to avoid any falls. Please follow-up with your primary care physician in 1 week and your broadcast director operations, Dr. Dickson in 1 week as well. Take 7.5 mg of Warfarin today, since your INR is sub-therapeutic and resume your regular schedule tomorrow. Please continue all of your other medications. If you have any chest pain or any trouble breathing or other complaints, please return to the hospital immediately. Referrals: Juan Dickson MD [Staff Physician] - 1 Week Elva Lugo [Primary Care Provider] - Disposition: HOME - Home Medications Comprehensive Discharge Medication List: Ambulatory Orders Acetaminophen [Mapap] 1,000 mg PO BID PRN 05/03/17 Atorvastatin Ca [Lipitor] 10 mg PO HS 05/03/17 Calcium Citrate/Magnesium/D3 [Calcium Citrate Chewable Wafer] 3 each PO BID 12/19 Cholecalciferol (Vitamin D3) [Vitamin D3] 2,000 unit PO DAILY 05/03/17 Diltiazem Cd [Cardizem Cd -] 180 mg PO DAILY 05/03/17 Escitalopram Oxalate [Lexapro -] 5 mg PO DAILY 05/03/17 Furosemide [Lasix -] 40 mg PO DAILY 05/03/17 Lactase 6,000 unit PO BID 05/03/17 Metoprolol Succinate [Toprol XL -] 25 mg PO DAILY 05/03/17 Multivitamin [Poly-Vitamin] 1 each PO DAILY 05/03/17 Spironolactone 12.5 mg PO DAILY 05/03/17 Warfarin Sodium [Coumadin] 5 mg PO SUMO 05/03/17 Warfarin Sodium [Coumadin] 7.5 mg PO TUWETHFRSA 05/03/17 This patient is new to me today: Yes Date on this admission: 05/04/17 Emergency Visit: No Critical Care patient: No - Discharge Referral Referred to [facility] No
== END 2017-05-04 17:36 | disposition home or self-care (01) | DRG 914 ==
LOC: SUPCPDRO 17:08 → JER 17:08 → INTOOBSV 19:35 → JERBED 19:35 → J4W 20:54
PROVIDERS: ADMIT Internal Medicine; ATTEND Internal Medicine
DX: S09.90XA Unspecified injury of head, initial encounter (principal); I50.32 Chronic diastolic (congestive) heart failure; W01.0XXA Fall on same level from slipping, tripping and stumbling without subsequent striking against object, initial encounter; Y92.129 Unspecified place in nursing home as the place of occurrence of the external cause; I48.91 Unspecified atrial fibrillation; Z79.01 Long term (current) use of anticoagulants; E78.5 Hyperlipidemia, unspecified; Z86.73 Personal history of transient ischemic attack (TIA), and cerebral infarction without residual deficits; I11.0 Hypertensive heart disease with heart failure; Z85.3 Personal history of malignant neoplasm of breast; R74.8 Abnormal levels of other serum enzymes; M75.102 Unspecified rotator cuff tear or rupture of left shoulder, not specified as traumatic; G47.33 Obstructive sleep apnea (adult) (pediatric); E66.9 Obesity, unspecified; Z68.38 Body mass index [BMI] 38.0-38.9, adult
CPT/HCPCS: 36415; 70450-TC; 71010-TC; 80053; 82550; 82553; 83880; 84484; 85025; 85027; 85610; 86850; 86870; 86900; 86901; 86902; 93005; 93010; 93306-TC; 97116-GP; 97161-GP; 99285-25; G0378

== ENCOUNTER 2017-09-01 17:26 | Emergency (ER) | payer OTHER, BC ==
[2017-09-01 17:36] VITALS: BP 129/79; PULSE 64; TEMP 98.6; BMI 36.7
--- NOTE | 2017-09-01 18:41 | PDOC ---
History of Present Illness - General History Source: Patient Exam Limitations: No Limitations - History of Present Illness Initial Comments: 09/01/17 19:12 The patient is a 86-year-old female from [facility] with a significant past medical history of HTN, HLD, A-fib on coumadin, prior CVA, diastolic CHF, who was sent to the emergency department for further evaluation of brain MRI results that reveal two small acute non-hemorrhagic infarcts. The MRIs were ordered by Dr. Simon. As per son, the patient began to experience jumbled speech and could not ambulate at baseline (uses a walker at baseline) 9 days ago. Since, the symptoms have improved but patient has not returned to baseline. She also notes mild fecal incontinence that occurs several times a day which started around the same time. She also reports of a hollow feeling at the neck. Pt denies chest pain, shortness of breath, headache and dizziness. Pt denies fever, chills, nausea, vomit, and constipation. Allergies: penicillins, epinephrine, codeine Social history: former smoker, no other toxic habits reported PCP: Dr. Elva Lugo Manager Parking: Dr. Dickson <Sondra Ly - Last Filed: 09/01/17 19:14> - General History Source: Patient Exam Limitations: No Limitations <Corie Coronado - Last Filed: 09/01/17 19:22> - General Chief Complaint: Weakness Stated Complaint: POSSIBLE STROKE Time Seen by Provider: 09/01/17 17:52 NIH Stroke Scale - Initial Evaluation Level of consciousness: Alert Ask patient the month and their age: Answers both correctly Ask patient to open & close eyes; make fist and let go: Obeys both correctly Best gaze (horizontal eye movement): Normal Visual field testing: No visual field loss Facial paresis (Show teeth/raise eyebrows/close eyes tight): Normal symmetrical movement Motor Function: Left Arm: Normal Motor Function: Right Arm: Normal (extends arm 90 (or 45) degrees for 10 seconds without drift Motor Function: Left Leg: Normal (extends leg 30 degrees for 5 seconds without drift) Motor Function: Right Leg: Normal (extends leg 30 degrees for 5 seconds without drift) Limb Ataxia: No ataxia Sensory(Use pinprick test arms,legs,trunk,face/side to side): Normal Best language (Describe picture, name items, read sentences): No Aphasia Dysarthria (read several words): Mild to moderate slurring of words Extinction and Inattention: No abnormality - Total Score NIH Stroke Scale Score: 1 <LaurylakeshaCorie - Last Filed: 09/01/17 19:22> tPA Exclusion Checklist 0-3hr - Thrombolytic Therapy Candidate Is the patient eligible for Thrombolytic Therapy?: No - Ineligibility reason(s) Reasons No tPA given: Outside of window - delayed arrival (symptoms were 10 days ago. ) <LaurylakeshaCorie - Last Filed: 09/01/17 19:22> Past History <Sondra Ly - Last Filed: 09/01/17 19:14> - Past Medical History Anemia: Yes Cancer: Yes (BREAST) Cardiac Disorders: Yes (ATRIAL FIB., HEART FAILURE) CVA: Yes COPD: No CHF: Yes Dementia: Yes GI Disorders: Yes HTN: Yes Hypercholesterolemia: Yes Thyroid Disease: Yes Other medical history: SLEEP APNEA - Immunization History Immunization Up to Date: Yes - Suicide/Smoking/Psychosocial Hx Smoking History: Former smoker Have you smoked in the past 12 months: No If you are a former smoker, when did you quit?: 1989 Information on smoking cessation initiated: No Hx Alcohol Use: No Drug/Substance Use Hx: No Substance Use Type: None Hx Substance Use Treatment: No <LaurylakeshaCorie - Last Filed: 09/01/17 19:22> - Past Medical History Allergies/Adverse Reactions: Allergies Allergy/AdvReac Type Severity Reaction Status Date / Time Penicillins Allergy Severe Itching Verified 09/01/17 17:27 epinephrine AdvReac Severe Verified 09/01/17 17:27 codeine AdvReac Unknown Vomiting Verified 09/01/17 17:27 Home Medications: Ambulatory Orders Acetaminophen [Mapap] 1,000 mg PO BID PRN 05/03/17 Atorvastatin Ca [Lipitor] 10 mg PO HS 05/03/17 Calcium Citrate/Magnesium/D3 [Calcium Citrate Chewable Wafer] 3 each PO BID 12/19 Cholecalciferol (Vitamin D3) [Vitamin D3] 2,000 unit PO DAILY 05/03/17 Diltiazem Cd [Cardizem Cd -] 180 mg PO DAILY 05/03/17 Escitalopram Oxalate [Lexapro -] 5 mg PO DAILY 05/03/17 Furosemide [Lasix -] 40 mg PO DAILY 05/03/17 Lactase 6,000 unit PO BID 05/03/17 Metoprolol Succinate [Toprol XL -] 25 mg PO DAILY 05/03/17 Multivitamin [Poly-Vitamin] 1 each PO DAILY 05/03/17 Spironolactone 12.5 mg PO DAILY 05/03/17 Warfarin Sodium [Coumadin] 5 mg PO SUMO 05/03/17 Warfarin Sodium [Coumadin] 7.5 mg PO TUWETHFRSA 05/03/17 Miscellaneous Medical Supply [Outpatient Order] 1 [place] [facility] [place] Systems - Review of Systems Able to Perform ROS?: Yes Comments:: 09/01/17 19:13 GENERAL/CONSTITUTIONAL: No fever or chills. No weakness. HEAD, EYES, EARS, NOSE AND THROAT: No change in vision. No ear pain or discharge. No sore throat. GASTROINTESTINAL: No nausea, vomiting, diarrhea or constipation. GENITOURINARY: No dysuria, frequency, or change in urination. CARDIOVASCULAR: No chest pain or shortness of breath. RESPIRATORY: No cough, wheezing, or hemoptysis. MUSCULOSKELETAL: No joint or muscle swelling or pain. No neck or back pain. SKIN: No rash NEUROLOGIC: (+) Altered mental status, slurred speech and difficulty walking. No headache, vertigo, loss of consciousness. ENDOCRINE: No increased thirst. No abnormal weight change. HEMATOLOGIC/LYMPHATIC: No anemia, easy bleeding, or history of blood clots. ALLERGIC/IMMUNOLOGIC: No hives or skin allergy. <Sondra Ly - Last Filed: 09/01/17 19:14> *Physical Exam - Vital Signs Last Vital Signs Temp Pulse Resp BP Pulse Ox 98.6 F 64 22 129/79 96 09/01/17 17:28 09/01/17 17:28 09/01/17 17:28 09/01/17 17:28 09/01/17 17:28 - Physical Exam Comments: 09/01/17 19:13 GENERAL: Awake, alert, and fully oriented, in no acute distress HEAD: No signs of trauma EYES: PERRLA, EOMI, sclera anicteric, conjunctiva clear ENT: Auricles normal inspection, nares patent, Moist mucosa NECK: Normal ROM, supple, no lymphadenopathy, JVD, or masses LUNGS: Breath sounds equal, clear to auscultation bilaterally. No wheezes, and no crackles HEART: Regular rate and rhythm, normal S1 and S2, no murmurs, rubs or gallops ABDOMEN: Soft, nontender, normoactive bowel sounds. No guarding, no rebound. No masses EXTREMITIES: Normal range of motion, no edema. No clubbing or cyanosis. No cords, erythema, or tenderness NEUROLOGICAL: (+) Mild dysarthria. Finger to nose normal, strength 5/5 on all 4 extremities, SILT, A&O x3. SKIN: Warm, Dry, normal turgor, no rashes or lesions noted. <Sondra Ly - Last Filed: 09/01/17 19:14> - Vital Signs Last Vital Signs Temp Pulse Resp BP Pulse Ox 98.6 F 64 22 129/79 96 09/01/17 17:28 09/01/17 17:28 09/01/17 17:28 09/01/17 17:28 09/01/17 17:28 <Corie Coronado - Last Filed: 09/01/17 19:22> ED Treatment Course - LABORATORY CBC & Chemistry Diagram: 09/01/17 18:38 09/01/17 18:38 - ADDITIONAL ORDERS Additional order review: Laboratory Results 09/01/17 18:38 Blood Type Cancelled Antibody Screen Cancelled Spec Expiration Date Cancelled 09/01/17 18:38 RBC 4.69 MCV 98.7 H MCHC 33.6 RDW 13.8 MPV 9.7 Neutrophils % 61.2 Lymphocytes % 24.7 D Monocytes % 11.3 H Eosinophils % 1.9 Basophils % 0.9 <Sondra Ly - Last Filed: 09/01/17 19:14> - LABORATORY CBC & Chemistry Diagram: 09/01/17 18:38 09/01/17 18:38 <Corie Coronado - Last Filed: 09/01/17 19:22> Medical Decision Making - Medical Decision Making 09/01/17 18:35 86 yo F wit h/o prior cva, afib, htn , on coumadin here for concerns for slurred speech and gait changs noted 10 days ago. sent from MRI for positive finding of infarct. per pt son who provides most of recent history pt has had some improvement with gait and speech the last few days. per her son he was concerned she may have had a stroke 3 yrs ago but al test were negative at that time. no f/c no recent fall. currently resides at [facility], was walking with a walker 09/01/17 18:37 plan d/w dr. simon, would like pt admitted for further stroke work up includes carotid evaluation. pt has seen dr Jean for cardiology. is on coumadin but has h/o prior bleeding. INR last checked was 2.4. results d/w pt son and pt, agreeable to stay in hospital over night . 09/01/17 18:55 after much discussion with pt son and patient who would rather go back to assisted living as symptoms happened 10 days ago and pt already on coumadin. <Corie Coronado - Last Filed: 09/01/17 19:22> *DC/Admit/Observation/Transfer - Attestations Scribe Attestion: 09/01/17 19:13 Documentation prepared by Sondra Ly, acting as medical insurance clerk for Corie Coronado MD, /DO. <Sondra Ly - Last Filed: 09/01/17 19:14> - Discharge Dispostion Admit: Yes <Corie Coronado - Last Filed: 09/01/17 19:22> Diagnosis at time of Disposition: CVA (cerebral vascular accident) - Referrals Referrals: Juan Dickson MD [Primary Care Provider] -
[2017-09-01 19:01] LABS: BASOPHIL 0.9 % (0-2.0); EOSINOPHIL 1.9 % (0-4.5); MCH 33.2 pg (25.7-33.7); MCHC 33.6 g/dl (32.0-36.0); MEAN CELL VOLUME 98.7 fl (80-96); MEAN PLT VOLUME 9.7 fl (7.5-11.1); NEUTROPHILS 61.2 % (42.8-82.8); PLATELET COUNT 261 K/MM3 (134-434); RDW 13.8 % (11.6-15.6); WHITE BLOOD COUNT 6.7 K/mm3 (4.0-10.0)
[2017-09-01 19:13] LABS: INR 1.86 (0.82-1.09)
[2017-09-01 19:23] LABS: ALBUMIN 4.2 g/dl (3.4-5.0); ANION GAP 7 (8-16); BILIRUBIN,TOTAL 0.7 mg/dL (0.2-1.0); CALCIUM 9.2 mg/dL (8.5-10.1); CO2 28 mmol/L (21-32); CREATININE 0.7 mg/dL (0.55-1.02); GLUCOSE,RANDOM 90 mg/dL (74-106); SGPT/ALT 24 U/L (12-78)
[2017-09-01 19:26] LABS: ALK PHOS 85 U/L (45-117); CPK 103 IU/L (26-192); TOT PROT 7.9 g/dl (6.4-8.2); TROPONIN I 0.14 ng/ml (0.00-0.05)
[2017-09-01 19:35] LABS: SGOT/AST 23 U/L (15-37)
--- NOTE | 2017-09-01 22:34 | PDOC ---
*Physical Exam - Vital Signs Last Vital Signs Temp Pulse Resp BP Pulse Ox 98.6 F 64 22 129/79 96 09/01/17 17:28 09/01/17 17:28 09/01/17 17:28 09/01/17 17:28 09/01/17 17:28 ED Treatment Course - LABORATORY CBC & Chemistry Diagram: 09/01/17 18:38 09/01/17 18:38 - ADDITIONAL ORDERS Additional order review: Laboratory Results 09/01/17 09/01/17 09/01/17 18:38 18:38 18:38 PT with INR 21.00 H INR 1.86 H Sodium 134 L Potassium 5.0 Chloride 99 Carbon Dioxide 28 Anion Gap 7 L BUN 30 H Creatinine 0.7 Creat Clearance w eGFR > 60 Random Glucose 90 Calcium 9.2 Total Bilirubin 0.7 AST 23 D ALT 24 D Alkaline Phosphatase 85 D Creatine Kinase 103 Troponin I 0.14 H Total Protein 7.9 Albumin 4.2 Blood Type Cancelled Antibody Screen Cancelled Spec Expiration Date Cancelled 09/01/17 18:38 RBC 4.69 MCV 98.7 H MCHC 33.6 RDW 13.8 MPV 9.7 Neutrophils % 61.2 Lymphocytes % 24.7 D Monocytes % 11.3 H Eosinophils % 1.9 Basophils % 0.9 Medical Decision Making - Medical Decision Making 09/01/17 22:30 Pt son wants to have pt to be discharged. Spoke to Dr. Woods. She states that she is in accordance for pt to be discharged and have pt follow up with her pcp, lens fabricating machine tender, neurologist. *DC/Admit/Observation/Transfer Diagnosis at time of Disposition: CVA (cerebral vascular accident) - Discharge Dispostion Disposition: HOME Condition at time of disposition: Stable Admit: No - Referrals Referrals: Juan Dickson MD [Primary Care Provider] - Elva Lugo [Non Staff, Medical] - Ellie Woods MD [Staff Physician] - - Patient Instructions Printed Discharge Instructions: DI for Stroke-Ischemic Additional Instructions: Please follow up with your primary care physician and your specialists in the next two days for re-evaluation. Return if any problems. - Post Discharge Activity
--- NOTE | 2017-09-04 09:48 | EKG ---
Test Reason : Blood Pressure : / mmHG Vent. Rate : 093 BPM Atrial Rate : 093 BPM P-R Int : 000 ms QRS Dur : 100 ms QT Int : 364 ms P-R-T Axes : 109 -15 135 degrees QTc Int : 452 ms ATRIAL FLUTTER WITH VARIABLE BLOCK MODERATE VOLTAGE CRITERIA FOR LVH, MAY BE NORMAL VARIANT ABNORMAL ECG Confirmed by CONY CONNER MD ([id number]) on 09/04/2017 9:48:14 AM Referred By: Confirmed By:CONY CONNER MD
== END 2017-09-01 22:52 ==
LOC: JER 17:26
DX: I63.9 Cerebral infarction, unspecified (principal); Z87.891 Personal history of nicotine dependence; I48.91 Unspecified atrial fibrillation; Z79.01 Long term (current) use of anticoagulants; I25.10 Atherosclerotic heart disease of native coronary artery without angina pectoris; I11.0 Hypertensive heart disease with heart failure; E07.9 Disorder of thyroid, unspecified; D64.9 Anemia, unspecified; G47.30 Sleep apnea, unspecified; Z85.3 Personal history of malignant neoplasm of breast; Z99.89 Dependence on other enabling machines and devices
CPT/HCPCS: 36415; 71010-TC; 80053; 82550; 84484; 85025; 85610; 93005; 93010; 93880-TC; 99284-25

== ENCOUNTER 2017-10-13 14:03 | Day surgery (SDC) | payer OTHER, BC ==
[2017-10-13 13:00] LABS: BASO % 0.8 % (0-2.0); EOS % 1.1 % (0-4.5); HEMATOCRIT 27.8 % (32.4-45.2); HEMOGLOBIN 8.9 GM/dL (10.7-15.3); LYMPH % 12.5 % (8-40); MCH 30.6 pg (25.7-33.7); MCHC 31.9 g/dl (32.0-36.0); MEAN CELL VOLUME 95.9 fl (80-96); MEAN PLT VOLUME 7.7 fl (7.5-11.1); MONO % 12.5 % (3.8-10.2); NEUT % 73.1 % (42.8-82.8); PLATELET COUNT 405 K/MM3 (134-434); RDW 16.3 % (11.6-15.6); WHITE BLOOD COUNT 7.6 K/mm3 (4.0-10.0)
[2017-10-13] MEDS ORDERED: FUROSEMIDE 40 MG/4 ML INJECTABLE VIAL IVPUSH ONE ×2 (14:30→20:45)
[2017-10-13] MEDS ORDERED: IRON SUCROSE INJECTION 200 MG in SODIUM CHLORIDE 100 ML IVPB ONE (16:00)
--- NOTE | 2017-10-13 16:22 | HP ---
Satellite [facility] - Chief Complaint Chief Complaint: SOB History Source: Patient, Family Member, Medical Record - Past Medical History Allergies/Adverse Reactions: Allergies Allergy/AdvReac Type Severity Reaction Status Date / Time Penicillins Allergy Severe Itching Verified 09/01/17 17:27 epinephrine AdvReac Severe Verified 09/01/17 17:27 codeine AdvReac Unknown Vomiting Verified 09/01/17 17:27 Cardiovascular: Yes: AFIB, CHF (chronic diastolic) Heme/Onc: Yes: Cancer (breast) Endocrine: Yes: Hypothyroidism - Current Medications Current Medications: Home Medications Medication Instructions Recorded Acetaminophen [Mapap] 1,000 mg PO BID PRN 05/03/17 Atorvastatin Ca [Lipitor] 10 mg PO HS 05/03/17 Calcium Citrate/Magnesium/D3 3 each PO BID 05/03/17 [Calcium Citrate Chewable Wafer] Cholecalciferol (Vitamin D3) 2,000 unit PO DAILY 05/03/17 [Vitamin D3] Diltiazem Cd [Cardizem Cd -] 180 mg PO DAILY 05/03/17 Escitalopram Oxalate [Lexapro -] 5 mg PO DAILY 05/03/17 Furosemide [Lasix -] 40 mg PO DAILY 05/03/17 Lactase 6,000 unit PO BID 05/03/17 Metoprolol Succinate [Toprol XL -] 25 mg PO DAILY 05/03/17 Multivitamin [Poly-Vitamin] 1 each PO DAILY 05/03/17 Spironolactone 12.5 mg PO DAILY 05/03/17 Warfarin Sodium [Coumadin] 5 mg PO SUMO 05/03/17 Warfarin Sodium [Coumadin] 7.5 mg PO TUWETHFRSA 05/03/17 Miscellaneous Medical Supply 1 each ASDIR #1 [facility] [place] 05/04/17 [Outpatient Order] Satellite Physical Exam - Physical Examination Vital Signs: Vital Signs Period Temp Pulse Resp BP Sys/Davis Pulse Ox Last 24 Hr 97.6 F-97.6 F 87-87 20-20 109-109/68-68 General Appearance: Alert & Oriented x3, No Distress, Obese Lung: Clear to auscultation Heart: Regular rate & rhythm Abdomen: No tenderness Extremities: No edema Neurological: Alert, Oriented Satellite Impression/Plan - Impression/Plan Impression: Anemia: Venofer. Antibody + T/S: PRBC one unit to be given today. over 4hrs , give lasix 40mg IVPB post PRBC. Hgb base line at 14, s/p recent admssion for GIB at [facility].Today Hgb is 8.9, Iron studies from office with an Iron sat of 5%. d/w pts son
[2017-10-14 02:11] VITALS: BP 144/72; PULSE 75; TEMP 98.6
== END 2017-10-13 23:00 | disposition home or self-care (01) ==
LOC: JONCBLOOD 14:03 → J7W 14:10 → JONCBLOOD 23:00
PROVIDERS: ATTEND Internal Medicine Hematology & Oncology
PROC: 3E033GC Introduction of Other Therapeutic Substance into Peripheral Vein, Percutaneous Approach (ICD-10-PCS; principal; 2017-10-13)
PROC: 30233N1 Transfusion of Nonautologous Red Blood Cells into Peripheral Vein, Percutaneous Approach (ICD-10-PCS; 2017-10-13)
DX: D50.9 Iron deficiency anemia, unspecified (principal)
CPT/HCPCS: 36415; 36430; 85025; 86850; 86870; 86900; 86901; 86902; 86922; J1756; P9038; P9058

== ENCOUNTER 2017-10-16 07:22 | Day surgery (SDC) | payer OTHER, BC ==
[2017-10-16 10:46] LABS: BASOPHIL 1.2 % (0-2.0); EOSINOPHIL 1.9 % (0-4.5); MCH 29.7 pg (25.7-33.7); MCHC 31.3 g/dl (32.0-36.0); MEAN CELL VOLUME 94.8 fl (80-96); MEAN PLT VOLUME 8.5 fl (7.5-11.1); NEUTROPHILS 73.4 % (42.8-82.8); PLATELET COUNT 442 K/MM3 (134-434); RDW 18.4 % (11.6-15.6); WHITE BLOOD COUNT 7.1 K/mm3 (4.0-10.0)
[2017-10-16 11:55] VITALS: BP 125/78; PULSE 81; TEMP 97.5
[2017-10-16] MEDS ORDERED: IRON SUCROSE INJECTION 200 MG in SODIUM CHLORIDE 100 ML IVPB ONE (13:00)
== END 2017-10-16 11:45 | disposition home or self-care (01) ==
LOC: JONCNONCHE 07:22 → J7W 09:53 → JONCNONCHE 11:45
PROVIDERS: ATTEND Internal Medicine Hematology & Oncology
PROC: 3E033GC Introduction of Other Therapeutic Substance into Peripheral Vein, Percutaneous Approach (ICD-10-PCS; principal; 2017-10-16)
DX: D50.9 Iron deficiency anemia, unspecified (principal)
CPT/HCPCS: 36415; 85025; 96365; J1756

== ENCOUNTER 2017-10-28 07:33 | Day surgery (SDC) | payer OTHER, BC ==
[2017-10-28] MEDS ORDERED: IRON SUCROSE INJECTION 100 MG in SODIUM CHLORIDE 100 ML IVPB ONE (10:00)
[2017-10-28 18:00] VITALS: PULSE 74; TEMP 97.9
[2017-10-28 18:05] VITALS: BP 116/78
== END 2017-10-28 14:45 | disposition home or self-care (01) ==
LOC: JONCNONCHE 07:33
PROVIDERS: ATTEND Internal Medicine Hematology & Oncology
PROC: 3E033GC Introduction of Other Therapeutic Substance into Peripheral Vein, Percutaneous Approach (ICD-10-PCS; principal; 2017-10-28)
DX: D50.9 Iron deficiency anemia, unspecified (principal)
CPT/HCPCS: 96365; J1756

== ENCOUNTER 2018-01-05 07:26 | Day surgery (SDC) | payer OTHER, BC ==
[2018-01-05] MEDS ORDERED: IRON SUCROSE INJECTION 100 MG in SODIUM CHLORIDE 100 ML IVPB ONE (10:00)
[2018-01-05 18:41] VITALS: BP 98/54; PULSE 66; TEMP 97.7
== END 2018-01-05 16:30 | disposition home or self-care (01) ==
LOC: JONCNONCHE 07:26 → J7W 14:15 → JONCNONCHE 16:30
PROVIDERS: ATTEND Internal Medicine Hematology & Oncology
PROC: 3E033GC Introduction of Other Therapeutic Substance into Peripheral Vein, Percutaneous Approach (ICD-10-PCS; principal; 2018-01-05)
DX: D50.9 Iron deficiency anemia, unspecified (principal)
CPT/HCPCS: 96365; J1756

== ENCOUNTER 2018-04-13 22:42 | Inpatient (IN) | payer OTHER, BC ==
--- NOTE | 2018-04-13 23:29 | PDOC ---
History of Present Illness - General Chief Complaint: Weakness Stated Complaint: Weakness & SOB Time Seen by Provider: 04/13/18 23:29 History Source: Patient - History of Present Illness Initial Comments: 04/14/18 00:02 87 year old female from [facility] history of HTN, HLD, A-fib s/p watchman procedure, prior CVA, diastolic CHF,Sudden onset of slurred speech since 5 PM on 04/13/18. Patient is also noted to have some shortness of breath and pursed lip breathing. Patient denies chest pain, diaphoresis, nausea , vomiting, abdominal pain, urinary symptoms. NIH Stroke Scale - Last Known Well Date/Time & Onset Date Last Known Well: 04/13/18 Time Last Known Well: 17:00 - Initial Evaluation Level of consciousness: Alert Ask patient the month and their age: Answers both correctly Ask patient to open & close eyes; make fist and let go: Obeys both correctly Best gaze (horizontal eye movement): Normal Visual field testing: No visual field loss Facial paresis (Show teeth/raise eyebrows/close eyes tight): Normal symmetrical movement Motor Function: Left Arm: Normal Motor Function: Right Arm: Normal (extends arm 90 (or 45) degrees for 10 seconds without drift Motor Function: Left Leg: Normal (extends leg 30 degrees for 5 seconds without drift) Motor Function: Right Leg: Normal (extends leg 30 degrees for 5 seconds without drift) Limb Ataxia: No ataxia Sensory(Use pinprick test arms,legs,trunk,face/side to side): Normal Best language (Describe picture, name items, read sentences): No Aphasia Dysarthria (read several words): Mild to moderate slurring of words Extinction and Inattention: No abnormality - Total Score NIH Stroke Scale Score: 1 Past History - Past Medical History Allergies/Adverse Reactions: Allergies Allergy/AdvReac Type Severity Reaction Status Date / Time Penicillins Allergy Severe Itching Verified 04/13/18 22:58 epinephrine AdvReac Severe Verified 04/13/18 22:58 codeine AdvReac Unknown Vomiting Verified 04/13/18 22:58 Home Medications: Ambulatory Orders Acetaminophen [Mapap] 1,000 mg PO BID PRN 05/03/17 Atorvastatin Ca [Lipitor] 10 mg PO HS 05/03/17 Calcium Citrate/Magnesium/D3 [Calcium Citrate Chewable Wafer] 3 each PO BID 12/19 Cholecalciferol (Vitamin D3) [Vitamin D3] 2,000 unit PO DAILY 05/03/17 Diltiazem Cd [Cardizem Cd -] 180 mg PO DAILY 05/03/17 Escitalopram Oxalate [Lexapro -] 5 mg PO DAILY 05/03/17 Furosemide [Lasix -] 40 mg PO DAILY 05/03/17 Lactase 6,000 unit PO BID 05/03/17 Metoprolol Succinate [Toprol XL -] 25 mg PO DAILY 05/03/17 Multivitamin [Poly-Vitamin] 1 each PO DAILY 05/03/17 Spironolactone 12.5 mg PO DAILY 05/03/17 Warfarin Sodium [Coumadin] 5 mg PO SUMO 05/03/17 Warfarin Sodium [Coumadin] 7.5 mg PO TUWETHFRSA 05/03/17 Miscellaneous Medical Supply [Outpatient Order] 1 each ASDIR #1 mis Anemia: Yes Cancer: Yes (BREAST) Cardiac Disorders: Yes (ATRIAL FIB., HEART FAILURE) CVA: Yes COPD: No CHF: Yes Dementia: Yes GI Disorders: Yes HTN: Yes Hypercholesterolemia: Yes Thyroid Disease: Yes - Immunization History Immunization Up to Date: Yes - Suicide/Smoking/Psychosocial Hx Smoking History: Never smoked Have you smoked in the past 12 months: No If you are a former smoker, when did you quit?: 1989 Information on smoking cessation initiated: No Hx Alcohol Use: No Drug/Substance Use Hx: No Substance Use Type: None Hx Substance Use Treatment: No *Physical Exam - Vital Signs Last Vital Signs Temp Pulse Resp BP Pulse Ox 97.4 F L 95 H 19 110/61 97 04/13/18 22:49 04/13/18 22:49 04/13/18 22:49 04/13/18 22:49 04/13/18 22:49 - Physical Exam General Appearance: Yes: Appropriately Dressed, Mild Distress Respiratory/Chest: positive: Rales, Other (pursed lip breathing) Cardiovascular: positive: Regular Rhythm, Regular Rate Gastrointestinal/Abdominal: positive: Normal Bowel Sounds, Soft Extremity: positive: Normal Capillary Refill, Normal Inspection, Normal Range of Motion Integumentary: positive: Normal Color, Dry, Warm Neurologic: positive: Fully Oriented, Alert, Normal Mood/Affect Heart Score/ECG Review - History History: Slightly suspicious - Electrocardiogram EKG: Normal - Age Age: >/= 65 - Risk Factors Risk Factors Heart Score: Yes Hx Hypercholesterolemia, Yes Hx Hypertension Based on the list above the patient has:: 1-2 risk factors - Troponin Troponin: >/=3x normal limit - Score Heart Score - Total: 5 - ECG Intrepretation Rhythm: Regularly Irregular Comment:: 04/14/18 00:33 A-Flutter with 4: 1 AV conduction. T wave abnormality, consider anterolateral ischemia ED Treatment Course - LABORATORY CBC & Chemistry Diagram: 04/14/18 00:15 04/14/18 00:15 Medical Decision Making - Medical Decision Making 04/14/18 00:09 Patient has a Watchman Device RADHA closure device. ([employer] brand) "8 [place] [employer], (ePatient Guide (PG)Template, 8in x 8in, [id number]), ePG, Watchkrunal, EN, [id number] (K) E 5.0 WATCHMAN Left Atrial Appendage Closure Device If you require a magnetic resonance imaging (MRI) scan, tell your doctor or renewable energy technician technologist that you have a left atrial appendage closure implant. Non-clinical testing has demonstrated the WATCHMAN Implant is MR Conditional. A patient with a WATCHMAN Implant can be scanned safely under the following conditions: Static magnetic rice of 1.5 Stephanie or 3 Stephanie Spatial gradient field of 2500 Gauss/cm or less The maximum whole body averaged specific absorption rate (AURELIO) shall be limited to 2.0 W/kg (normal operating mode only) for 15 minutes of scanning Normal operating mode of the MRI scanner The WATCHMAN Implant should not migrate in this MRI environment. MR imaging within these conditions may be performed immediately following the implantation of WATCHMAN. MR image quality may be compromised if the area of interest is relatively close to the WATCHMAN Implant. Optimization of MR imaging parameters is recommended. This implant has not been evaluated to determine if it is MR Conditional beyond these parameters." 04/14/18 02:40 Dr. Morales Paged covering Dr. Dickson. troponin 0.22. Patient is signed out to Dr. Slaon for admission 04/14/18 02:[address] Morales on troponin 0.22 recommends tele monitoring and trending troponin. *DC/Admit/Observation/Transfer Diagnosis at time of Disposition: Slurred speech, Elevated troponin TIA (transient ischemic attack) Qualifiers: Transient cerebral ischemia type: unspecified Qualified Code(s): G45.9 - Transient cerebral ischemic attack, unspecified CHF (congestive heart failure) Qualifiers: Heart failure type: unspecified Heart failure chronicity: acute on chronic Qualified Code(s): I50.9 - Heart failure, unspecified - Discharge Dispostion Condition at time of disposition: Fair Decision to Admit order: Yes - Referrals Referrals: Juan Dickson MD [Primary Care Provider] - - Patient Instructions - Post Discharge Activity
[2018-04-13] MEDS ORDERED: SODIUM CHLORIDE 1,000 ML IV SCH (23:30)
[2018-04-14 00:35] LABS: BASO % 0.8 % (0-2.0); EOS % 1.7 % (0-4.5); HEMATOCRIT 39.5 % (32.4-45.2); HEMOGLOBIN 13.1 GM/dL (10.7-15.3); LYMPH % 20.5 % (8-40); MCH 30.8 pg (25.7-33.7); MCHC 33.3 g/dl (32.0-36.0); MEAN CELL VOLUME 92.5 fl (80-96); MEAN PLT VOLUME 9.2 fl (7.5-11.1); MONO % 10.4 % (3.8-10.2); NEUT % 66.6 % (42.8-82.8); PLATELET COUNT 282 K/MM3 (134-434); RBC 4.26 M/mm3 (3.60-5.2); RDW 14.7 % (11.6-15.6); WHITE BLOOD COUNT 7.5 K/mm3 (4.0-10.0)
[2018-04-14 00:47] LABS: INR 0.98 (0.82-1.09); PROTHROMBIN TIME (PATIENT) 11.1 SEC (9.7-13.0)
[2018-04-14 01:00] LABS: ALBUMIN 3.7 g/dl (3.4-5.0); ANION GAP 5 (8-16); BILIRUBIN,TOTAL 0.4 mg/dL (0.2-1.0); BLOOD UREA NITROGEN 27 mg/dL (7-18); CALCIUM 9.1 mg/dL (8.5-10.1); CHLORIDE 95 mmol/L (98-107); CO2 34 mmol/L (21-32); CREATININE 1.1 mg/dL (0.55-1.02); GLUCOSE,RANDOM 118 mg/dL (74-106); POTASSIUM 4.5 mmol/L (3.5-5.1); SGOT/AST 19 U/L (15-37); SGPT/ALT 23 U/L (12-78); SODIUM 134 mmol/L (136-145); TOT PROT 8.1 g/dl (6.4-8.2)
[2018-04-14 01:03] LABS: ALK PHOS 121 U/L (45-117)
[2018-04-14 01:24] LABS: URINE APPEARANCE SLCLOUDY; URINE BILIRUBIN NEGATIVE (<2.0 mg/dL); URINE COLOR LTYELLOW; URINE GLUCOSE (UA) NEGATIVE (NEGATIVE); URINE KETONE NEGATIVE (NEGATIVE); URINE LEUK ESTERASE NEGATIVE (NEGATIVE); URINE NITRITE NEGATIVE (NEGATIVE); URINE PROTEIN NEGATIVE (NEGATIVE); URINE UROBILINOGEN NEGATIVE mg/dL (0.2-1.0)
[2018-04-14 05:08] VITALS: BMI 33.7
[2018-04-14 09:07] LABS: INR 1.03 (0.82-1.09); PROTHROMBIN TIME (PATIENT) 11.6 SEC (9.7-13.0)
--- NOTE | 2018-04-14 09:42 | EKG ---
Test Reason : Blood Pressure : / mmHG Vent. Rate : 074 BPM Atrial Rate : 296 BPM P-R Int : 000 ms QRS Dur : 106 ms QT Int : 430 ms P-R-T Axes : 078 -06 103 degrees QTc Int : 477 ms ATRIAL FLUTTER WITH 4:1 A-V CONDUCTION VOLTAGE CRITERIA FOR LEFT VENTRICULAR HYPERTROPHY T WAVE ABNORMALITY, CONSIDER ANTEROLATERAL ISCHEMIA PROLONGED QT ABNORMAL ECG WHEN COMPARED WITH ECG OF 01-SEP-2017 21:19, PREVIOUS ECG HAS UNDETERMINED RHYTHM, NEEDS REVIEW ST NO LONGER DEPRESSED IN INFERIOR LEADS ST NO LONGER DEPRESSED IN ANTERIOR LEADS T WAVE INVERSION LESS EVIDENT IN LATERAL LEADS Confirmed by TAMMY NICHOLS, OBEY ([id number]) on 04/14/2018 9:42:49 AM Referred By: Confirmed By:OBEY MUNOZ MD
--- NOTE | 2018-04-14 10:22 | CONSULT ---
Admitting History and Physical - Primary Care Physician PCP: Elile Woods I - Admission History of Present Illness: Per admission note: 87 year old female from [facility] history of HTN, HLD, A-fib s/p watchman procedure, prior CVA, diastolic CHF,Sudden onset of slurred speech since 5 PM on 04/13/18. Patient is also noted to have some shortness of breath and pursed lip breathing. Patient denies chest pain, diaphoresis, nausea , vomiting, abdominal pain, urinary symptoms. This is my first consult with this pt. Pt's son reports h/o CVA in September, with speech impairment, improved to baseline. Pt received speech tx at [facility]. She has some baseline SOB, per family. No h/o Dysphagia. Additionally, pt had eye surgery last week, at which time Aspirin was held x 3 days. History Source: Patient Limitations to Obtaining History: No Limitations (sleepy. Repeatedly fell asleep , but easily arousable.) - Past Medical History Cardiovascular: Yes: AFIB, CHF (chronic diastolic) ...: No Heme/Onc: Yes: Cancer (breast) Endocrine: Yes: Hypothyroidism - Smoking History Smoking history: Never smoked Have you smoked in the past 12 months: No If you are a former smoker, when did you quit?: 1989 - Alcohol/Substance Use Hx Alcohol Use: No History - Admission Reason For Visit: TRANSIENT CEREBRAL ISCHEMIA, ATRIAL FIBRILLATION, - Diagnostics X-ray: Report Reviewed (CXR (-)) CT Scan: Report Reviewed (Atrophy/ M/V changes. No acute infarct identified) - General Mental Status: Alert and Oriented, Awake and Alert, Able to Follow Commands Attention: Mild Impairment (sleepy) Ability to Follow Directions: Good - Hearing Hearing: Functional Hearing Aide: No With Patient: No Speech Evaluation - Communication Primary Language: ALBANIAN Oral Expression Ability: Yes: Mild Impairment - Speech Production Able to Make Needs Known: Yes: Mildly Impaired Intelligibility: Yes: Mildly Impaired - Speech Characteristics Voice Loudness: Normal Voice Pitch: Yes: Normal Voice Phonatory-based Quality: Yes: Normal Nasal Resonance: Normal Articulation: Yes: Imprecise Rate of Speech: Too Fast Voice, Other Observations: Yes: Progressively Weak Voice - Language/Auditory Comprehension Follows: Yes: 2 Stage Simple Commands Observation: Able to respond to yes/no queries: Yes, Yes/No Confusion: No, Comprehends Conversational Speech: Yes - Language/Verbal Expression Able to Respond to Simple Queries: Yes: WNL Able to Communicate Wants and Needs: Yes: WNL Functional Communication Status: Yes: WNL - Swallow Evaluation/Bedside Assessment Current Nutritional Intake: NPO Oral Secretions: Yes: WFL Dentition: Yes: Adequate Facial Symmetry at Rest: Symmetrical Facial Symmetry on Retraction: Symmetrical Against Resistance Opening: Weak Against Resistance Closing: Weak Pucker Lips: Weak Smile: Weak Lingual Movement: Symmetric, Reduced Tip Elevation, Reduced Protrusion Lingual Speed of Movement: Reduced Lingual Movement Strgth Against Opposition: Reduced Lingual Movement Characteristics: Normal Velopharyngeal Movement: Normal Laryngeal Movement: Labored,delay initiation, Other (Mildly reduced layngeal excursion and VOM) Rate of Intake: WFL Bolus Size: WFL Labial Seal: WFL Chewing: WFL Oral Prep Time: WFL A-P Transit: WFL Timing of Swallow: Delayed Coughing/Throat Clear: No Change in Voice: No Recommendations - Speech Evaluation, Impression/Plan Impression: Aspirin held x 3 days last week for eye sx. Tongue symmetric but reduced strength upon protrusion and elevation. Swallow onset mildly delayed.Mildly reduced layngeal excursion and VOM. No overt symptoms of aspiration. Risk due to sleepiness and delayed onset.Sleepy. Son educated on results. - Dysphagia Impressions/Plan Dysphagia Impressions: Mild Impairment, Ongoing Evaluation *Silent aspiration: cannot be R/O at bedside Dysphagia Treatment Plan: Lingual Exercises, Swallowing Exercises, Chin Tuck/ Down, Trial Feedings, Safe Rate, 1/2 tsp. at a time, Elevate HOB during feed Recommendations: Modified Barium Swallow (if cough, congestion, fever, throat clearing.), Other (Feed only when fully alert.) - Recommendations Diet Consistency: Dysphagia Whole Medication Administration: Whole with water Liquids: Thin Liquids Supplement: Other (as indicated)
--- NOTE | 2018-04-14 11:21 | CON.CARD ---
Cardiology Consult (text) - Consultation Consultation Note: Chief Complaint: slurred speech History of Present Illness: 87 yo female here with slurred speech. Has hx cva with residuals but those have improved lately per son, but now yesterday she had weakness and slurred speech so sent from LONG TERM. No cp, sob, palps, dizzy,loc, pnd, orthopnea, le edema. Sees dr barton for cardio. PMH: severe BRUCE--intolerant of CPAP diast chf permanent AF s/p watchman device acute pulm toxicity with amio in past anemia HTN - Past Medical History Cardio/Vascular: Yes: AFIB, CHF (chronic diastolic) ...: No Endocrine: Yes: Hypothyroidism - Alcohol/Substance Use Hx Alcohol Use: No - Smoking History no tob Home Medications Allergies Allergy/AdvReac Type Severity Reaction Status Date / Time Penicillins Allergy Severe Itching Verified 04/13/18 22:58 epinephrine AdvReac Severe Verified 04/13/18 22:58 codeine AdvReac Unknown Vomiting Verified 04/13/18 22:58 Home Medications Medication Instructions Recorded Acetaminophen [Mapap] 1,000 mg PO BID PRN 05/03/17 Atorvastatin Ca [Lipitor] 10 mg PO HS 05/03/17 Calcium Citrate/Magnesium/D3 3 each PO BID 05/03/17 [Calcium Citrate Chewable Wafer] Cholecalciferol (Vitamin D3) 2,000 unit PO DAILY 05/03/17 [Vitamin D3] Diltiazem Cd [Cardizem Cd -] 180 mg PO DAILY 05/03/17 Escitalopram Oxalate [Lexapro -] 5 mg PO DAILY 05/03/17 Furosemide [Lasix -] 40 mg PO DAILY 05/03/17 Lactase 6,000 unit PO BID 05/03/17 Metoprolol Succinate [Toprol XL -] 25 mg PO DAILY 05/03/17 Multivitamin [Poly-Vitamin] 1 each PO DAILY 05/03/17 Spironolactone 12.5 mg PO DAILY 05/03/17 Warfarin Sodium [Coumadin] 5 mg PO SUMO 05/03/17 Warfarin Sodium [Coumadin] 7.5 mg PO TUWETHFRSA 05/03/17 Miscellaneous Medical Supply 1 each ASDIR #1 [facility] [place]04/17 [Outpatient Order] Family Disease History - Family Disease History Family History: Denies (no cmp) Review of Systems - Review of Systems Constitutional: denies: Chills, Fever Eyes: denies: Eye Pain HENT: denies: Nasal Congestion Neck: denies: Stiffness Cardiovascular: denies: Palpitations Respiratory: denies: Orthopnea, PND Gastrointestinal: denies: Diarrhea, Rectal Bleeding Genitourinary: denies: Burning, Hematuria Musculoskeletal: denies: Muscle Pain Integumentary: denies: Rash Neurological: denies: Numbness, Seizure, Syncope Endocrine: denies: Excessive Sweating Hematology/Lymphatic: denies: Excessive Bleeding Vital Signs: Vital Signs Period Temp Pulse Resp BP Sys/Davis Pulse Ox Last 24 Hr 97.4 F-97.7 F 71-95 18-20 110-128/61-78 97-97 Constitutional: Yes: No Distress, Obese Eyes: No: Sclera Icterus HENT: No: Nasal Congestion Neck: No: Decreased ROM Respiratory: Yes: CTA Bilaterally. No: Accessory Muscle Use, Rales, Wheezes Gastrointestinal: Yes: Normal Bowel Sounds. No: Distention, Hepatomegaly, Palpable Mass (tds habitus), Tenderness Cardiovascular: Yes: Pulse Irregular JVD: No Carotid Bruit: No PMI: Non-Displaced Heart Sounds: Yes: S1, S2. No: Gallop Murmur: No: Systolic Murmur, Diastolic Murmur Extremities: No: Cool, Cyanosis Edema: No Peripheral Pulses: 2+ Left Carotid, 2+ Right Carotid, 2+ Left Doralis Pedis, 2+ Right Dorsalis Pedis Integumentary: No: Jaundice diaphoresis Neurological: Yes: Alert, Oriented (x3), slurred speech Psychiatric: No: Agitated - Other Data Labs, Other Data: Laboratory Last Values WBC 7.5 K/mm3 (4.0-10.0) 04/14/18 00:15 RBC 4.26 M/mm3 (3.60-5.2) 04/14/18 00:15 Hgb 13.1 GM/dL (10.7-15.3) D 04/14/18 00:15 Hct 39.5 % (32.4-45.2) 04/14/18 00:15 MCV 92.5 fl (80-96) 04/14/18 00:15 MCH 30.8 pg (25.7-33.7) 04/14/18 00:15 MCHC 33.3 g/dl (32.0-36.0) 04/14/18 00:15 RDW 14.7 % (11.6-15.6) D 04/14/18 00:15 Plt Count 282 K/MM3 (134-434) 04/14/18 00:15 MPV 9.2 fl (7.5-11.1) 04/14/18 00:15 Absolute Neuts (auto) 5.0 # 04/14/18 00:15 Neutrophils % 66.6 % (42.8-82.8) 04/14/18 00:15 Lymphocytes % 20.5 % (8-40) D 04/14/18 00:15 Monocytes % 10.4 % (3.8-10.2) H 04/14/18 00:15 Eosinophils % 1.7 % (0-4.5) 04/14/18 00:15 Basophils % 0.8 % (0-2.0) 04/14/18 00:15 Nucleated RBC % 0 % (0-0) 04/14/18 00:15 PT with INR 11.60 SEC (9.7-13.0) 04/14/18 08:29 INR 1.03 (0.82-1.09) 04/14/18 08:29 Sodium 134 mmol/L (136-145) L 04/14/18 00:15 Potassium 4.5 mmol/L (3.5-5.1) 04/14/18 00:15 Chloride 95 mmol/L (98-107) L 04/14/18 00:15 Carbon Dioxide 34 mmol/L (21-32) H 04/14/18 00:15 Anion Gap 5 (8-16) L 04/14/18 00:15 BUN 27 mg/dL (7-18) H 04/14/18 00:15 Creatinine 1.1 mg/dL (0.55-1.02) H 04/14/18 00:15 Creat Clearance w eGFR 46.77 (>60) 04/14/18 00:15 Random Glucose 118 mg/dL (74-106) H 04/14/18 00:15 Calcium 9.1 mg/dL (8.5-10.1) 04/14/18 00:15 Total Bilirubin 0.4 mg/dL (0.2-1.0) D 04/14/18 00:15 AST 19 U/L (15-37) 04/14/18 00:15 ALT 23 U/L (12-78) 04/14/18 00:15 Alkaline Phosphatase 121 U/L (45-117) H 04/14/18 00:15 Creatine Kinase 91 IU/L (26-192) 04/14/18 00:15 Troponin I 0.22 ng/ml (0.00-0.05) H 04/14/18 00:15 B-Natriuretic Peptide 1170.83 pg/ml (5-450) H 04/14/18 00:15 Total Protein 8.1 g/dl (6.4-8.2) 04/14/18 00:15 Albumin 3.7 g/dl (3.4-5.0) 04/14/18 00:15 Urine Color Ltyellow 04/14/18 01:12 Urine Appearance Slcloudy 04/14/18 01:12 Urine pH 7.0 (5.0-8.0) 04/14/18 01:12 Ur Specific [place] 1.009 (1.001-1.035) 04/14/18 01:12 Urine Protein Negative (NEGATIVE) 04/14/18 01:12 Urine Glucose (UA) Negative (NEGATIVE) 04/14/18 01:12 Urine Ketones Negative (NEGATIVE) 04/14/18 01:12 Urine Blood Negative (NEGATIVE) 04/14/18 01:12 Urine Nitrite Negative (NEGATIVE) 04/14/18 01:12 Urine Bilirubin Negative (<2.0 mg/dL) 04/14/18 01:12 Urine Urobilinogen Negative mg/dL (0.2-1.0) 04/14/18 01:12 Ur Leukocyte Esterase Negative (NEGATIVE) 04/14/18 01:12 Blood Type B NEGATIVE 04/14/18 00:15 Antibody Screen Positive H 04/14/18 00:15 Antibody Identification Anti-C Anti-D 04/14/18 00:15 Antibody Identification Anti-C Anti-D 04/14/18 00:15 Antibody Identification Pos 04/14/18 00:15 Antigen Identification C Antigen - NEGATIVE D Antigen - NEGATIVE 04/14/18 00 :15 Antigen Identification C Antigen - NEGATIVE D Antigen - NEGATIVE 04/14/18 00 :15 tele: aflutter, rate controlled cxr: no chf/pna ecg: aflutter, rate controlled, no ischemic changes MPI 03/17 (marcial): no STs. no isch. nl EF. no TID Echo 06/17: nl LV/EF. elevated LAP, short decel time. nl RV. L/DARREL. mod MR/TR. no RVSP. a/p: 87 yo female here with slurred speech. slurred speech, possible cva: -head ct w/o acute findings -neuro eval pending -check echo elevated troponin: -borderline trop consistent with prior baseline here, not c/w acs, continue to trend -no ischemia eval warranted at this time permanent afib/flutter: -rate controlled, continue home meds -s/p watchman RADHA closure device, not on ac chronic diast chf: -well compensated on torsemide 100 qd and aldactone 25 4pm daily, resume home meds hld: -cont home statin htn: -controlled -cont home meds
--- NOTE | 2018-04-14 12:54 | HP ---
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 Cardiovascular: Yes: AFIB, CHF (chronic diastolic) ...: No Heme/Onc: Yes: Cancer (breast) Endocrine: Yes: Hypothyroidism - Smoking History Smoking history: Never smoked Have you smoked in the past 12 months: No If you are a former smoker, when did you quit?: 1989 - Alcohol/Substance Use Hx Alcohol Use: No - Social History Usual Living Arrangement: Yes: Assisted Living ADL: Support Services History of Recent Travel: No Home Medications - Allergies Allergies/Adverse Reactions: Allergies Allergy/AdvReac Type Severity Reaction Status Date / Time Penicillins Allergy Severe Itching Verified 04/13/18 22:58 epinephrine AdvReac Severe Verified 04/13/18 22:58 codeine AdvReac Unknown Vomiting Verified 04/13/18 22:58 - Home Medications Home Medications: Ambulatory Orders Acetaminophen [Mapap] 1,000 mg PO BID PRN 05/03/17 Atorvastatin Ca [Lipitor] 10 mg PO HS 05/03/17 Calcium Citrate/Magnesium/D3 [Calcium Citrate Chewable Wafer] 3 each PO BID 12/19 Cholecalciferol (Vitamin D3) [Vitamin D3] 2,000 unit PO DAILY 05/03/17 Diltiazem Cd [Cardizem Cd -] 180 mg PO DAILY 05/03/17 Escitalopram Oxalate [Lexapro -] 5 mg PO DAILY 05/03/17 Furosemide [Lasix -] 40 mg PO DAILY 05/03/17 Lactase 6,000 unit PO BID 05/03/17 Metoprolol Succinate [Toprol XL -] 25 mg PO DAILY 05/03/17 Multivitamin [Poly-Vitamin] 1 each PO DAILY 05/03/17 Spironolactone 12.5 mg PO DAILY 05/03/17 Warfarin Sodium [Coumadin] 5 mg PO SUMO 05/03/17 Warfarin Sodium [Coumadin] 7.5 mg PO TUWETHFRSA 05/03/17 Miscellaneous Medical Supply [Outpatient Order] 1 each ASDIR #1 [facility] [place] Review of Systems - Review of Systems Constitutional: reports: Weakness. denies: Chills, Fever, Night Sweats Eyes: reports: No Symptoms Neck: reports: No Symptoms Cardiovascular: reports: No Symptoms Respiratory: reports: No Symptoms Gastrointestinal: reports: No Symptoms Genitourinary: reports: No Symptoms Breasts: reports: No Symptoms Reported Musculoskeletal: reports: No Symptoms Integumentary: reports: No Symptoms Neurological: reports: Change in Speech, Pre-Existing Deficit Endocrine: reports: No Symptoms Hematology/Lymphatic: reports: No Symptoms Psychiatric: reports: No Symptoms Physical Examination Vital Signs: Vital Signs Temperature 97.7 F 04/14/18 05:01 Pulse Rate 80 04/14/18 09:00 Respiratory Rate 20 04/14/18 11:00 Blood Pressure 128/78 04/14/18 09:00 O2 Sat by Pulse Oximetry (%) 97 04/14/18 11:00 Constitutional: Yes: No Distress, Calm, Obese Eyes: Yes: Conjunctiva Clear HENT: Yes: Atraumatic, Normocephalic Neck: Yes: Supple, Trachea Midline Cardiovascular: Yes: Pulse Irregular Respiratory: Yes: CTA Bilaterally Gastrointestinal: Yes: Normal Bowel Sounds, Abdomen, Obese ...Rectal Exam: Yes: Deferred Renal/: Yes: WNL Breast(s): Yes: WNL Musculoskeletal: Yes: Muscle Weakness Edema: No Peripheral Pulses WNL: Yes Integumentary: Yes: WNL Neurological: Yes: Alert, Pre-Existing Deficit, Other (follows simple commands) Psychiatric: Yes: Alert Labs: CBC, BMP 04/14/18 00:15 04/14/18 00:15 Problem List - Problems (1) Slurred speech Code(s): R47.81 - SLURRED SPEECH (2) CVA (cerebral vascular accident) Code(s): I63.9 - CEREBRAL INFARCTION, UNSPECIFIED (3) Atrial fibrillation Code(s): I48.91 - UNSPECIFIED ATRIAL FIBRILLATION Qualifiers: Atrial fibrillation type: chronic Qualified Code(s): I48.2 - Chronic atrial fibrillation (4) Chronic diastolic heart failure Code(s): I50.32 - CHRONIC DIASTOLIC (CONGESTIVE) HEART FAILURE (5) Hyperlipidemia Code(s): E78.5 - HYPERLIPIDEMIA, UNSPECIFIED Qualifiers: Hyperlipidemia type: unspecified hyperlipidemia Qualified Code(s): E78.5 - Hyperlipidemia, unspecified (6) Hypertension Code(s): I10 - ESSENTIAL (PRIMARY) HYPERTENSION Qualifiers: Hypertension type: essential hypertension Qualified Code(s): I10 - Essential (primary) hypertension (7) Hypothyroidism Code(s): E03.9 - HYPOTHYROIDISM, UNSPECIFIED Qualifiers: Hypothyroidism type: unspecified Qualified Code(s): E03.9 - Hypothyroidism , unspecified
[2018-04-14] MEDS ORDERED: PT OWN MED DRAWER 7, Y5N ONE ×3 (14:27→16:25)
[2018-04-14] MEDS: ESCITALOPRAM OXALATE 10 MG TABLET (FP) PO SCH (14:39)
[2018-04-14] MEDS: LACTOBACILLUS ACIDOPHILUS 1 TABLET PO SCH (14:39)
[2018-04-14] MEDS: POLYETHYLENE GLYCOL 3350 119 GM BTL PO SCH (14:40)
[2018-04-14] MEDS: ARTIFICIAL TEARS (POLYVINYL ALCOHOL 1.4%) OPTH DROPS OU SCH ×2 (16:42→22:17)
[2018-04-14] MEDS: TORSEMIDE 100 MG TABLET PO SCH (16:52)
--- NOTE | 2018-04-14 22:16 | CON.NEURO ---
Consult Consult Specialty:: NEUROLOGY-SALINAS NICHOLS Reason for Consultation:: Slurred speech - History of Present Illness History of Present Illness: 87 year old female from [facility] assisted living facility history of HTN, HLD, A-fib s/p watchman procedure, prior CVA, diastolic CHF,Sudden onset of slurred speech since 5 PM on 04/13/18. Patient is also noted to have some shortnes. She tells me she had marked "couldnt find words" difficulty yesterday, it is now better but still present. Denies all other neurologic symptoms. 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 Cardio/Vascular: Yes: AFIB, CHF (chronic diastolic) ...: No Endocrine: Yes: Hypothyroidism - Alcohol/Substance Use Hx Alcohol Use: No - Smoking History Smoking history: Never smoked Have you smoked in the past 12 months: No If you are a former smoker, when did you quit?: 1989 - Social History ADL: Support Services History of Recent Travel: No Home Medications - Allergies Allergies/Adverse Reactions: Allergies Allergy/AdvReac Type Severity Reaction Status Date / Time Penicillins Allergy Severe Itching Verified 04/13/18 22:58 epinephrine AdvReac Severe Verified 04/13/18 22:58 codeine AdvReac Unknown Vomiting Verified 04/13/18 22:58 - Home Medications Home Medications: Ambulatory Orders Acetaminophen [Mapap] 1,000 mg PO BID PRN 05/03/17 Atorvastatin Ca [Lipitor] 10 mg PO HS 05/03/17 Calcium Citrate/Magnesium/D3 [Calcium Citrate Chewable Wafer] 3 each PO BID 12/19 Cholecalciferol (Vitamin D3) [Vitamin D3] 2,000 unit PO DAILY 05/03/17 Diltiazem Cd [Cardizem Cd -] 180 mg PO DAILY 05/03/17 Escitalopram Oxalate [Lexapro -] 5 mg PO DAILY 05/03/17 Furosemide [Lasix -] 40 mg PO DAILY 05/03/17 Lactase 6,000 unit PO BID 05/03/17 Metoprolol Succinate [Toprol XL -] 25 mg PO DAILY 05/03/17 Multivitamin [Poly-Vitamin] 1 each PO DAILY 05/03/17 Spironolactone 12.5 mg PO DAILY 05/03/17 Warfarin Sodium [Coumadin] 5 mg PO SUMO 05/03/17 Warfarin Sodium [Coumadin] 7.5 mg PO WETHFRSA 05/03/17 Miscellaneous Medical Supply [Outpatient Order] 1 each ASDIR #1 [facility] [place] Physical Exam-Neuro Vital Signs: Vital Signs Temperature 97.5 F L 04/14/18 18:00 Pulse Rate 84 04/14/18 20:00 Respiratory Rate 20 04/14/18 21:00 Blood Pressure 100/66 04/14/18 20:00 O2 Sat by Pulse Oximetry (%) 97 04/14/18 21:00 Labs: CBC, BMP 04/14/18 00:15 04/14/18 00:15 INR, PTT INR 1.03 (0.82-1.09) 04/14/18 08:29 - Neuro Exam Level Of Consciousness: Yes: Alert, Oriented to Person, Oriented to Place Speech: Broca's Aphasia (Pt. has mildly non-fluent speech and anomia- mild Brocas aphasia. Improved since yesterday as per nursing) Mini Mental Exam: Follows 2 step commands, intact attention/concentration, STM 2 /3 in 5 mns DTR's: 0 Left Achilles, 0 Right Achilles, 1+ Left Bicep, 1+ Right Bicep, 1+ Left Tricep, 1+ Right Tricep, 1+ Left Brachioradialis, 1+ Right Brachioradialis Babinski: Absent Response to light touch: Normal Response to pain prick: Normal Coordination: Normal: Finger to Nose (normal) Motor Strength: 5/5: Left Arm, Right Arm, Left Leg, Right Leg (right arm with diminished rom due to rotator cuff tear) Gait: Deferred Imaging - Results Cat Scan: Report Reviewed (Without acute abn.) Assessment/Plan Pt. with sudden word finding difficulty and non-fluent speech which she reports( and nursing confirms) is improving, she has minimal anomia and dysfluency of speech. She appeatrs to have had improving pure motoer aphasia, given phenomenology and presence of afib likely cardio-embolic. Pt. was on a/c, can resume a/c if indicated, even if she has had an infarct it is a small one not contraindicating a/c. No further neurologic w/u required at this time. Thank you, Willy De La Garza MD
[2018-04-14] MEDS: METOPROLOL TARTRATE 25 MG TABLET (FP) PO SCH (22:18)
[2018-04-14] MEDS: ATORVASTATIN CA 40 MG TABLET (FP) PO SCH (22:18)
[2018-04-14] MEDS: LATANOPROST 0.005% OPHTH SOLN 2.5ML BOTTLE OU SCH (22:18)
[2018-04-15 08:56] LABS: ALBUMIN 3.3 g/dl (3.4-5.0); ALK PHOS 99 U/L (45-117); ANION GAP 9 (8-16); BILIRUBIN,TOTAL 0.6 mg/dL (0.2-1.0); BLOOD UREA NITROGEN 20 mg/dL (7-18); CALCIUM 8.9 mg/dL (8.5-10.1); CHLORIDE 94 mmol/L (98-107); CO2 34 mmol/L (21-32); CREATININE 0.9 mg/dL (0.55-1.02); GLUCOSE,RANDOM 106 mg/dL (74-106); MAGNESIUM 2.5 mg/dL (1.8-2.4); POTASSIUM 3.8 mmol/L (3.5-5.1); SGOT/AST 18 U/L (15-37); SGPT/ALT 20 U/L (12-78); SODIUM 137 mmol/L (136-145); TOT PROT 7.4 g/dl (6.4-8.2)
[2018-04-15 09:02] LABS: BASO % 0.6 % (0-2.0); EOS % 1.4 % (0-4.5); HEMATOCRIT 38.8 % (32.4-45.2); HEMOGLOBIN 12.9 GM/dL (10.7-15.3); LYMPH % 18.8 % (8-40); MCH 30.7 pg (25.7-33.7); MCHC 33.3 g/dl (32.0-36.0); MEAN CELL VOLUME 92.3 fl (80-96); MEAN PLT VOLUME 8.9 fl (7.5-11.1); MONO % 10.9 % (3.8-10.2); NEUT % 68.3 % (42.8-82.8); PLATELET COUNT 261 K/MM3 (134-434); RDW 14.9 % (11.6-15.6); WHITE BLOOD COUNT 8.2 K/mm3 (4.0-10.0)
[2018-04-15 09:20] LABS: INR 1.03 (0.82-1.09); PROTHROMBIN TIME (PATIENT) 11.6 SEC (9.7-13.0)
[2018-04-15] MEDS: ESCITALOPRAM OXALATE 10 MG TABLET (FP) PO SCH (09:47)
[2018-04-15] MEDS: LACTOBACILLUS ACIDOPHILUS 1 TABLET PO SCH (09:47)
[2018-04-15] MEDS: METOPROLOL TARTRATE 25 MG TABLET (FP) PO SCH ×2 (09:47→21:33)
[2018-04-15] MEDS: TORSEMIDE 100 MG TABLET PO SCH (09:49)
[2018-04-15] MEDS: POLYETHYLENE GLYCOL 3350 119 GM BTL PO SCH (09:50)
[2018-04-15] MEDS ORDERED: SPIRONOLACTONE 25 MG TABLET (FP) PO SCH (10:00)
[2018-04-15] MEDS ORDERED: PANTOPRAZOLE 40 MG TABLET (FP) PO SCH (10:00)
--- NOTE | 2018-04-15 10:36 | PN ---
Progress Note (short form) - Note Progress Note: s: no cp sob palps dizzy; speech improving o: Vital Signs Period Temp Pulse Resp BP Sys/Davis Pulse Ox Last 24 Hr 97.5 F-97.9 F 78-91 19-88 100-116/66-82 97-97 Constitutional: Yes: No Distress, Obese Eyes: No: Sclera Icterus Respiratory: Yes: CTA Bilaterally. No: Accessory Muscle Use, Rales, Wheezes Gastrointestinal: Yes: Normal Bowel Sounds. No: Distention, Hepatomegaly, Palpable Mass (tds habitus), Tenderness Cardiovascular: Yes: Pulse Irregular JVD: No Carotid Bruit: No PMI: Non-Displaced Heart Sounds: Yes: S1, S2. No: Gallop Murmur: No: Systolic Murmur, Diastolic Murmur Extremities: No: Cool, Cyanosis Edema: No Integumentary: No: Jaundice diaphoresis Neurological: Yes: Alert, Oriented (x3), slurred speech Psychiatric: No: Agitated Current Medications Generic Name Dose Route Start Last Admin Trade Name Freq PRN Reason Stop Dose Admin Artificial Tears 1 drop 04/14/18 14:00 04/14/18 22:17 Artificial Tears OU 1 drop TID KOURTNEY Administration Atorvastatin Calcium 40 mg 04/14/18 22:00 04/14/18 22:18 Lipitor - PO 40 mg HS KOURTNEY Administration Diltiazem HCl 180 mg 04/14/18 14:15 04/15/18 09:47 Cardizem Cd - PO 180 mg DAILY KOURTNEY Administration Escitalopram Oxalate 5 mg 04/14/18 14:15 04/15/18 09:47 Lexapro - PO 5 mg DAILY KOURTNEY Administration Sodium Chloride 1,000 mls @ 42 mls/hr 04/13/18 23:30 04/13/18 23:55 Normal Saline - IV 42 mls/hr ASDIR KOURTNEY Administration Lactobacillus Acidophilus 1 tab 04/14/18 14:15 04/15/18 09:47 Bacid - PO 1 tab DAILY KOURTNEY Administration Latanoprost 1 drop 04/14/18 22:00 04/14/18 22:18 Xalatan 0.005% Eye Drops - OU 1 drop HS KOURTNEY Administration Metoprolol Tartrate 12.5 mg 04/14/18 22:00 04/15/18 09:47 Lopressor - PO 12.5 mg BID KOURTNEY Administration Pantoprazole Sodium 40 mg 04/15/18 10:00 04/15/18 09:47 Protonix - PO 40 mg DAILY KOURTNEY Administration Polyethylene Glycol 17 gm 04/14/18 14:15 04/15/18 09:50 Miralax (For Daily Use) - PO 17 gm DAILY KOURTNEY Administration Spironolactone 25 mg 04/15/18 10:00 04/15/18 09:49 Aldactone - PO 25 mg DAILY KOURTNEY Administration Torsemide 100 mg 04/14/18 14:30 04/15/18 09:49 Demadex - PO 100 mg DAILY KOURTNEY Administration CBC, BMP 04/15/18 05:52 04/15/18 06:00 tele: aflutter, rate controlled cxr: no chf/pna ecg: aflutter, rate controlled, no ischemic changes MPI 03/17 (marcial): no STs. no isch. nl EF. no TID Echo 06/17: nl LV/EF. elevated LAP, short decel time. nl RV. L/DARREL. mod MR/TR. no RVSP. echo 04/2018: nl lv, rv tds, mild mr, mild tr, rvsp 30-40 a/p: 87 yo female here with slurred speech. slurred speech, possible cva: -head ct w/o acute findings -neuro suspicious for small cva -echo unremarkable -will d/w EP at [facility] given that pt has watchman device elevated troponin: -borderline trop consistent with prior baseline here, not c/w acs -no ischemia eval warranted at this time permanent afib/flutter: -rate controlled, continue home meds -s/p watchman RADHA closure device, not on ac chronic diast chf: -well compensated on torsemide 100 qd and aldactone 25 4pm daily hld: -cont home statin htn: -controlled -cont home meds
--- NOTE | 2018-04-15 11:12 | EKG ---
Test Reason : Blood Pressure : / mmHG Vent. Rate : 085 BPM Atrial Rate : 308 BPM P-R Int : 000 ms QRS Dur : 096 ms QT Int : 386 ms P-R-T Axes : 000 -10 082 degrees QTc Int : 459 ms ATRIAL FLUTTER WITH VARIABLE A-V BLOCK VOLTAGE CRITERIA FOR LEFT VENTRICULAR HYPERTROPHY ABNORMAL ECG WHEN COMPARED WITH ECG OF 14-APR-2018 00:18, NO SIGNIFICANT CHANGE WAS FOUND Confirmed by TINA NICHOLS, HOMERO ([id number]) on 04/15/2018 11:12:12 AM Referred By: NEHA LENZ DR Confirmed By:HOMERO WILDER MD
--- NOTE | 2018-04-15 14:09 | PN ---
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 Confrontation naming/ word retrieval in propositional speech intact. No c/o word retrieval difficulty. Mild dysarthria with rapid speech production adversely affecting intelligibility of speech. Pt is swallowing well without signs or symptoms of Dysphagia. Selected Entries 04/14/18 04/14/18 04/14/18 05:01 10:09 12:00 Breakfast Lunch 75% Temperature 97.7 F 97.6 F 04/14/18 04/14/18 04/14/18 15:30 16:00 17:00 Breakfast Lunch Temperature 97.5 F L 97.8 F 97.9 F 04/14/18 04/14/18 04/15/18 17:10 18:00 09:42 Breakfast 100% Lunch 75% Temperature 97.5 F L 04/15/18 13:19 Breakfast Lunch 50% Temperature Laboratory Tests 04/15/18 05:52 WBC 8.2 IMP: Dysarthria. REC: Pt will benefit from continued speech tx to improve articulatory precision and reduce speech rate.
[2018-04-15 17:27] VITALS: TEMP 98.7
[2018-04-15 17:28] VITALS: BP 100/63; PULSE 72
[2018-04-15] MEDS ORDERED: PT OWN MED DRAWER 7, Y5N ONE (21:30)
[2018-04-15] MEDS: ATORVASTATIN CA 40 MG TABLET (FP) PO SCH (21:33)
[2018-04-15] MEDS: LATANOPROST 0.005% OPHTH SOLN 2.5ML BOTTLE OU SCH (21:35)
[2018-04-15] MEDS: ARTIFICIAL TEARS (POLYVINYL ALCOHOL 1.4%) OPTH DROPS OU SCH (21:36)
== END 2018-04-15 22:00 | disposition short-term general hospital (02) | DRG 65 ==
LOC: JER 22:42 → JERBED 04-14 02:42 → UNDOADMIN 04-14 02:45 → JER 04-14 04:04 → J2W 04-14 04:53 → JERBED 04-14 04:53
PROVIDERS: ADMIT Family Medicine; ATTEND Family Medicine
DX: I63.9 Cerebral infarction, unspecified (principal); I48.92 Unspecified atrial flutter; I50.32 Chronic diastolic (congestive) heart failure; G81.90 Hemiplegia, unspecified affecting unspecified side; I48.2 Chronic atrial fibrillation; I11.0 Hypertensive heart disease with heart failure; E78.5 Hyperlipidemia, unspecified; R47.81 Slurred speech; E03.9 Hypothyroidism, unspecified; R29.701 NIHSS score 1
CPT/HCPCS: 36415; 70450-TC; 71045-TC-FY; 80048; 80053; 81003; 82550; 83735; 83880; 84484; 85025; 85610; 86850; 86870; 86900; 86901; 86902; 93005; 93010; 93306-TC; 97116-GP; 97162-GP; 99283-25; J7030

== ENCOUNTER 2018-07-31 04:02 | Observation (INO) | payer OTHER, BC ==
--- NOTE | 2018-07-31 04:20 | PDOC ---
Attending Attestation - Resident Resident Name: Amos Gilliam - ED Attending Attestation I have performed the following: I have examined & evaluated the patient, The case was reviewed & discussed with the resident, I agree w/resident's findings & plan - HPI HPI: 07/31/18 05:59 Pt fell backward in her head on the floor in her room at the [facility]. - Physicial Exam PE: 07/31/18 05:59 Agree with resident exam - Medical Decision Making 07/31/18 06:00 INR is elevated at 2+; CBC is normal. K+ is low at 2.9 07/31/18 06:01 07/31/18 06:50 EKG is still pending 07/31/18 06:51 Pt will have K+ repleted and she will be signed out to the day ER team for potential ED obs.
[2018-07-31 04:27] VITALS: BMI 35.5
--- NOTE | 2018-07-31 04:33 | PDOC ---
History of Present Illness - General Chief Complaint: Injury Stated Complaint: FALL Time Seen by Provider: 07/31/18 04:20 History Source: Patient Exam Limitations: No Limitations - History of Present Illness Initial Comments: 07/31/18 04:32 87 year old female from [facility] history of HTN, HLD, A-fib s/p watchman procedure on eliquis, prior CVA, diastolic CHF, sent to the ED for unwitnessed fall while going from bathroom to bed. Fell back backwards on carpet, denies hitting her head or LOC. Able to ambulate with walker. 07/31/18 04:37 Past History - Past Medical History Allergies/Adverse Reactions: Allergies Allergy/AdvReac Type Severity Reaction Status Date / Time Penicillins Allergy Severe Itching Verified 07/31/18 04:26 epinephrine AdvReac Severe Verified 07/31/18 04:26 codeine AdvReac Unknown Vomiting Verified 07/31/18 04:26 Home Medications: Ambulatory Orders Apixaban [Eliquis -] 5 mg PO Q12H 07/31/18 Atorvastatin Calcium 10 mg PO DAILY 07/31/18 Cholecalciferol (Vitamin D3) [Vitamin D3] 2,000 unit PO DAILY 07/31/18 Diltiazem HCl [Diltiazem 24Hr ER] 180 mg PO DAILY 07/31/18 Diltiazem [Cardizem -] 30 mg PO TID PRN 07/31/18 Escitalopram Oxalate [Lexapro -] 5 mg PO DAILY 07/31/18 Lactase 6,000 unit PO BID PRN 07/31/18 Latanoprost/Pf [Latanoprost 0.005% Eye Drop] 7.5 ml OU DAILY 07/31/18 Metoprolol Succinate 25 mg PO DAILY 07/31/18 Pantoprazole Sodium 40 mg PO DAILY 07/31/18 Polyethylene Glycol 3350 [Gavilax] 17 gm PO PRN PRN 07/31/18 Potassium Chloride 20 meq PO BID 07/31/18 Rivastigmine 1 each TD Q24H 07/31/18 Simethicone [Gas-X] 125 mg PO PRN PRN 07/31/18 Spironolactone 12.5 mg PO DAILY 07/31/18 Torsemide 100 mg PO DAILY 07/31/18 traZODone HCL [Trazodone HCl] 50 mg PO HS 07/31/18 Anemia: Yes Cancer: Yes (BREAST) Cardiac Disorders: Yes (ATRIAL FIB., HEART FAILURE) CVA: Yes COPD: No CHF: Yes Dementia: Yes GI Disorders: Yes HTN: Yes Hypercholesterolemia: Yes Thyroid Disease: Yes - Immunization History Immunization Up to Date: Yes - Suicide/Smoking/Psychosocial Hx Smoking History: Never smoked Have you smoked in the past 12 months: No If you are a former smoker, when did you quit?: 1989 Information on smoking cessation initiated: No Hx Alcohol Use: No Drug/Substance Use Hx: No Substance Use Type: None Hx Substance Use Treatment: No Review of Systems - Review of Systems Able to Perform ROS?: Yes Is the patient limited Croatian proficient: No Constitutional: No: Symptoms Reported HEENTM: No: Symptoms Reported Respiratory: No: Symptoms reported Cardiac (ROS): No: Symptoms Reported ABD/GI: No: Symptoms Reported : No: Symptoms Reported Musculoskeletal: No: Symptoms Reported Integumentary: No: Symptoms Reported Neurological: No: Symptoms reported All Other Systems: Reviewed and Negative *Physical Exam - Vital Signs Last Vital Signs Temp Pulse Resp BP Pulse Ox 97.6 F 69 18 103/67 96 07/31/18 04:10 07/31/18 04:10 07/31/18 04:10 07/31/18 04:10 07/31/18 04:10 - Physical Exam General Appearance: Yes: Nourished, Appropriately Dressed. No: Apparent Distress HEENT: positive: EOMI, ENA, Normal ENT Inspection Respiratory/Chest: positive: Lungs Clear, Normal Breath Sounds. negative: Chest Tender, Respiratory Distress Cardiovascular: positive: Regular Rhythm, Regular Rate, S1, S2 Gastrointestinal/Abdominal: positive: Normal Bowel Sounds, Flat, Soft. negative : Tender ED Treatment Course - LABORATORY CBC & Chemistry Diagram: 07/31/18 04:50 07/31/18 17:00 - RADIOLOGY Radiology Studies Ordered: Category Date Time Status HEAD CT WITHOUT CONTRAST [CT] Stat CT Scan 07/31/18 04:21 Ordered CHEST X-RAY PORTABLE* [RAD] Stat Radiology 07/31/18 04:21 Ordered Medical Decision Making - Medical Decision Making 07/31/18 04:[address] chest xray UA basic labs 07/31/18 20:04 Patient signed out to Dr. Alva *DC/Admit/Observation/Transfer Diagnosis at time of Disposition: Hypokalemia, Accidental fall, Dehydration - Discharge Dispostion Condition at time of disposition: Fair - Referrals - Patient Instructions - Post Discharge Activity
[2018-07-31 05:15] LABS: BASO % 0.4 % (0-2.0); EOS % 1.1 % (0-4.5); HEMATOCRIT 37.8 % (32.4-45.2); HEMOGLOBIN 12.6 GM/dL (10.7-15.3); LYMPH % 12.3 % (8-40); MCH 30.7 pg (25.7-33.7); MCHC 33.3 g/dl (32.0-36.0); MEAN CELL VOLUME 92.1 fl (80-96); MEAN PLT VOLUME 9.6 fl (7.5-11.1); MONO % 8.1 % (3.8-10.2); NEUT % 78.1 % (42.8-82.8); PLATELET COUNT 263 K/MM3 (134-434); RDW 13.6 % (11.6-15.6); WHITE BLOOD COUNT 8.9 K/mm3 (4.0-10.0)
[2018-07-31 05:27] LABS: INR 2.21 (0.83-1.09); PROTHROMBIN TIME (PATIENT) 26.3 SEC (9.7-13.0)
[2018-07-31] MEDS ORDERED: METOPROLOL TARTRATE 5 MG/5 ML VIAL IVPUSH ONE (05:27)
[2018-07-31 05:30] LABS: ACTIVATED PTT 29.8 SECONDS (25.2-36.5)
[2018-07-31] MEDS ORDERED: METOPROLOL TARTRATE 5 MG/5 ML VIAL ONE (05:38)
[2018-07-31 06:01] LABS: ALK PHOS 108 U/L (45-117); ANION GAP 13 MMOL/L (8-16); BILIRUBIN,TOTAL 0.8 mg/dL (0.2-1); BLOOD UREA NITROGEN 66 mg/dL (7-18); CALCIUM 9.8 mg/dL (8.5-10.1); CHLORIDE 82 mmol/L (98-107); CO2 37 mmol/L (21-32); CREATININE 1.7 mg/dL (0.55-1.3); GLUCOSE,RANDOM 137 mg/dL (74-106); SGOT/AST 21 U/L (15-37); SGPT/ALT 20 U/L (13-61); SODIUM 131 mmol/L (136-145)
[2018-07-31] MEDS ORDERED: POTASSIUM CHLORIDE TABS 20 MEQ TABLET.ER (FP) PO ONE ×2 (06:01→06:15)
[2018-07-31 06:02] LABS: POTASSIUM 2.9 mmol/L (3.5-5.1)
[2018-07-31] MEDS ORDERED: POTASSIUM CHLORIDE 20 MEQ PREMIX IVPB 100 ML IVPB ONE (06:05)
[2018-07-31] MEDS ORDERED: KCL 10 MEQ IVPB 10 MEQ/100 ML INFUS.BAG IVPB ONE ×2 (06:15→07:40)
[2018-07-31] MEDS: KCL 10 MEQ IVPB 10 MEQ/100 ML INFUS.BAG IVPB SCH ×2 (06:38→07:50)
--- NOTE | 2018-07-31 07:36 | PDOC ---
*Physical Exam - Vital Signs Last Vital Signs Temp Pulse Resp BP Pulse Ox 97.6 F 69 18 103/67 96 07/31/18 04:10 07/31/18 04:10 07/31/18 04:10 07/31/18 04:10 07/31/18 04:10 - Physical Exam Comments: 07/31/18 09:51 NAD, well appearing, MMM, nl conjunctiva, anicteric; neck supple. no JVD. lungs clear, irreg irreg, abdomen soft nontender. DUQUE x4, no focal neuro deficits. No peripheral edema. no calf tenderness. normal color for ethnicity, WWP. ED Treatment Course - LABORATORY CBC & Chemistry Diagram: 07/31/18 04:50 07/31/18 04:50 - ADDITIONAL ORDERS Additional order review: Laboratory Results 07/31/18 07/31/18 04:50 04:50 PT with INR 26.30 H INR 2.21 H PTT (Actin FS) 29.8 Sodium 131 L Potassium 2.9 L* Chloride 82 L Carbon Dioxide 37 H Anion Gap 13 BUN 66 H Creatinine 1.7 H Creat Clearance w eGFR 28.30 Random Glucose 137 H Calcium 9.8 Total Bilirubin 0.8 AST 21 ALT 20 Alkaline Phosphatase 108 Total Protein 8.0 Albumin 4.0 07/31/18 04:50 RBC 4.10 MCV 92.1 MCHC 33.3 RDW 13.6 MPV 9.6 Neutrophils % 78.1 Lymphocytes % 12.3 Monocytes % 8.1 Eosinophils % 1.1 Basophils % 0.4 - Medications Given in the ED: ED Medications Discontinued Medications Generic Name Dose Route Start Last Admin Trade Name Freq PRN Reason Stop Dose Admin Metoprolol Tartrate 5 mg 07/31/18 05:27 07/31/18 06:38 Lopressor Injection - IVPUSH 07/31/18 05:28 Not Given ONCE ONE Potassium Chloride 40 meq 07/31/18 06:01 07/31/18 06:38 K-Dur - PO 07/31/18 06:02 40 meq ONCE ONE Administration Medical Decision Making - Medical Decision Making 07/31/18 07:[address] Bonner pending reeval for hypo K and RICKIE on CKD 87 year old female from [facility] history of HTN, HLD, A-fib s/p watchman procedure on eliquis, prior CVA, diastolic CHF, sent to the ED for unwitnessed fall while going from bathroom to bed. vitals wnl. labs and lytes reviewed, elevated Cr baseline but more with BUN. will hydrate. potassium found to be low 2.9, repleted IV and PO.. recheck bmp. EKG sinus rhythm, nonspecific T wave abnormalties, narrow QRS, LVH present, prolonged QT CT head with volume loss, but no bleed spoke with Dr. iDckson, agrees with admission, monitoring I/Os, cautious fluid to rehydrate as she had regimen of diuretic adjustments now leading to overdiuresis and RICKIE/hypo-K. admit for dehydration, electrolyte derangement requiring monitoring and repletion and fall risk/prevention/PT eval. pt and family member, son agreeable to plan. Admit to Dr Lugo service, Dr. Woods. 07/31/18 09:51 07/31/18 09:55 *DC/Admit/Observation/Transfer Diagnosis at time of Disposition: Hypokalemia, Accidental fall, Dehydration - Discharge Dispostion Condition at time of disposition: Fair Decision to Admit order: Yes Decision to Admit order Date/Time: Decision to Admit Order Category Date Time Status Decision to Admit to Hospital Routine Admission 07/31/18 07:36 Ordered - Referrals Referrals: Elva Lugo [Primary Care Provider] - - Patient Instructions - Post Discharge Activity
--- NOTE | 2018-07-31 07:41 | PDOC ---
*Physical Exam - Vital Signs Last Vital Signs Temp Pulse Resp BP Pulse Ox 97.6 F 69 18 103/67 96 07/31/18 04:10 07/31/18 04:10 07/31/18 04:10 07/31/18 04:10 07/31/18 04:10 - Physical Exam Comments: 07/31/18 07:44 GENERAL: Awake, alert, and fully oriented, in no acute distress HEAD: No signs of trauma, normocephalic, atraumatic EYES: PERRLA, EOMI, sclera anicteric, conjunctiva clear ENT: Auricles normal inspection, hearing grossly normal, nares patent, oropharynx clear without exudates. Moist mucosa NECK: Normal ROM, supple, no lymphadenopathy, JVD, or masses LUNGS: No distress, speaks full sentences, clear to auscultation bilaterally HEART: Regular rate and rhythm, normal S1 and S2, no murmurs, rubs or gallops, peripheral pulses normal and equal bilaterally. ABDOMEN: Soft, nontender, normoactive bowel sounds. No guarding, no rebound. No masses EXTREMITIES : Normal inspection, Normal range of motion, no edema. No clubbing or cyanosis. NEUROLOGICAL: Cranial nerves II through XII grossly intact. Normal speech, no focal sensorimotor deficits SKIN: Warm, Dry, normal turgor, no rashes or lesions noted ED Treatment Course - LABORATORY CBC & Chemistry Diagram: 07/31/18 04:50 07/31/18 04:50 - ADDITIONAL ORDERS Additional order review: Laboratory Results 07/31/18 07/31/18 04:50 04:50 PT with INR 26.30 H INR 2.21 H PTT (Actin FS) 29.8 Sodium 131 L Potassium 2.9 L* Chloride 82 L Carbon Dioxide 37 H Anion Gap 13 BUN 66 H Creatinine 1.7 H Creat Clearance w eGFR 28.30 Random Glucose 137 H Calcium 9.8 Total Bilirubin 0.8 AST 21 ALT 20 Alkaline Phosphatase 108 Total Protein 8.0 Albumin 4.0 07/31/18 04:50 RBC 4.10 MCV 92.1 MCHC 33.3 RDW 13.6 MPV 9.6 Neutrophils % 78.1 Lymphocytes % 12.3 Monocytes % 8.1 Eosinophils % 1.1 Basophils % 0.4 - Medications Given in the ED: ED Medications Discontinued Medications Generic Name Dose Route Start Last Admin Trade Name Freq PRN Reason Stop Dose Admin Metoprolol Tartrate 5 mg 07/31/18 05:27 07/31/18 06:38 Lopressor Injection - IVPUSH 07/31/18 05:28 Not Given ONCE ONE Potassium Chloride 40 meq 07/31/18 06:01 07/31/18 06:38 K-Dur - PO 07/31/18 06:02 40 meq ONCE ONE Administration Medical Decision Making - Medical Decision Making 07/31/18 07:41 Received sign out from Dr. Gilliam. 87 yo F HTN, HLD, A-fib s/p watchman procedure on eliquis, prior CVA, diastolic CHF, sent to the ED for unwitnessed fall during ambulation with asssitive device. Denies hitting her head or LOC. VSS, AF. No neuro deficits on physical exam. Pending CTH to r/o hemorrhage, hematoma, skull fracture. ED Course notable for RICKIE BUN/CR: 66/1.7, K+ 2.9. CBC unremarkable. Patient on Toresomide , Spironolactone, Metolazone. Has received K-dur 40 meQ, Potassium Cl IV 20. PMD Elva Lugo. [employer] phone number [phone]. ED Course: 07/31/18 07:[address] Dickson contacted. Awaiting call back. Per Dr. Dickson RICKIE, K+ likely d/t Metolazone. Advised pt. to be admitted. pt on Eliquis, weak, and fall risk. 50 cc/hr NS, Admit to Dr. Woods ( covering physician for Elva Lugo) 07/31/18 09:[address] Woods answering service. Awaiting call back. *DC/Admit/Observation/Transfer Diagnosis at time of Disposition: Hypokalemia, Accidental fall, Dehydration - Discharge Dispostion Condition at time of disposition: Fair Decision to Admit order: Yes - Referrals - Patient Instructions - Post Discharge Activity
[2018-07-31 08:53] LABS: URINE APPEARANCE CLEAR; URINE BILIRUBIN NEGATIVE (<2.0 mg/dL); URINE COLOR STRAW; URINE GLUCOSE (UA) NEGATIVE (NEGATIVE); URINE KETONE NEGATIVE (NEGATIVE); URINE LEUK ESTERASE NEGATIVE (NEGATIVE); URINE NITRITE NEGATIVE (NEGATIVE); URINE PROTEIN NEGATIVE (NEGATIVE); URINE UROBILINOGEN NEGATIVE mg/dL (0.2-1.0)
[2018-07-31] MEDS ORDERED: SODIUM CHLORIDE 1,000 ML IV SCH (09:45)
--- NOTE | 2018-07-31 10:29 | CON.CARD ---
Consult Consult Specialty:: cardio - History of Present Illness Chief Complaint: fall History of Present Illness: 87 yo F here for fall. well known to me in office, i saw her on 07/29. per son (verbal report given to him from nurse in [facility]) and pt, she lost balance/fell weak and slumped back against wall/to floor. no head trauma. pt has known diast chf, recently c/o'd of incr sob and wt up 158 lbs (approx 4 wks ago). was already on torsemide 100 qd and spironolactone. given metolazone 1.25mg once a week for several weeks, with stable K on serial labs and creat stable in 1.3-1.4 range wt remained stable at 153 lbs on that regimen. metolazone incrementally increased, recently to 4x/week. this week son noted pt more weak (generalized), less functional. on 07/29 i ordered stop metolazone and resume on 08/04 at once a week. pt has chronic sx of sob when first lays in bed, ongoing for at least a couple of months--stable. no other sob noted presently denies sob. denies cp. 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 Cardio/Vascular: Yes: AFIB, CHF (chronic diastolic) Endocrine: Yes: Hypothyroidism - Alcohol/Substance Use Hx Alcohol Use: No - Smoking History Smoking history: Former smoker Have you smoked in the past 12 months: No If you are a former smoker, when did you quit?: 1989 - Social History ADL: Support Services History of Recent Travel: No Home Medications - Allergies Allergies/Adverse Reactions: Allergies Allergy/AdvReac Type Severity Reaction Status Date / Time Penicillins Allergy Severe Itching Verified 07/31/18 04:26 epinephrine AdvReac Severe Verified 07/31/18 04:26 codeine AdvReac Unknown Vomiting Verified 07/31/18 04:26 - Home Medications Home Medications: Ambulatory Orders Acetaminophen [Mapap] 1,000 mg PO BID PRN 05/03/17 Atorvastatin Ca [Lipitor] 10 mg PO HS 05/03/17 Calcium Citrate/Magnesium/D3 [Calcium Citrate Chewable Wafer] 3 each PO BID 12/19 Cholecalciferol (Vitamin D3) [Vitamin D3] 2,000 unit PO DAILY 05/03/17 Diltiazem Cd [Cardizem Cd -] 180 mg PO DAILY 05/03/17 Escitalopram Oxalate [Lexapro -] 5 mg PO DAILY 05/03/17 Furosemide [Lasix -] 40 mg PO DAILY 05/03/17 Lactase 6,000 unit PO BID 05/03/17 Metoprolol Succinate [Toprol XL -] 25 mg PO DAILY 05/03/17 Multivitamin [Poly-Vitamin] 1 each PO DAILY 05/03/17 Spironolactone 12.5 mg PO DAILY 05/03/17 Warfarin Sodium [Coumadin] 5 mg PO SUMO 05/03/17 Warfarin Sodium [Coumadin] 7.5 mg PO [id number] 05/03/17 Miscellaneous Medical Supply [Outpatient Order] 1 each ASDIR #1 [facility] Family Disease History - Family Disease History Family History: Denies (no known cmp) Review of Systems - Review of Systems Constitutional: reports: Weakness. denies: Chills, Fever Eyes: denies: Eye Pain HENT: denies: Nasal Congestion Neck: denies: Stiffness Cardiovascular: denies: Palpitations Respiratory: denies: Orthopnea, PND Gastrointestinal: denies: Diarrhea, Rectal Bleeding Genitourinary: denies: Burning, Hematuria Musculoskeletal: denies: Muscle Pain Integumentary: denies: Rash Neurological: denies: Numbness, Seizure, Syncope Endocrine: denies: Excessive Sweating Hematology/Lymphatic: denies: Excessive Bleeding Vital Signs: Vital Signs Temperature 97.6 F 07/31/18 04:10 Pulse Rate 69 07/31/18 04:10 Respiratory Rate 18 07/31/18 07:45 Blood Pressure 103/67 07/31/18 04:10 O2 Sat by Pulse Oximetry (%) 96 07/31/18 07:45 Constitutional: Yes: No Distress, Obese Eyes: No: Sclera Icterus HENT: No: Nasal Congestion Neck: No: Decreased ROM Respiratory: Yes: CTA Bilaterally. No: Accessory Muscle Use, Rales, Wheezes Gastrointestinal: Yes: Normal Bowel Sounds. No: Distention, Hepatomegaly, Palpable Mass, Tenderness Cardiovascular: Yes: Pulse Irregular JVD: No Carotid Bruit: No PMI: Non-Displaced Heart Sounds: Yes: S1, S2. No: Gallop Murmur: No: Systolic Murmur, Diastolic Murmur Musculoskeletal: Yes: Other (No kyphosis) Extremities: No: Cold, Cyanosis Edema: No Peripheral Pulses: 2+ Left Carotid, 2+ Right Carotid, 2+ Left Doralis Pedis, 2+ Right Dorsalis Pedis Integumentary: No: Jaundice Neurological: Yes: Alert, Oriented (x3) Psychiatric: No: Agitated - Other Data Labs, Other Data: CBC, BMP 07/31/18 04:50 07/31/18 04:50 INR, PTT INR 2.21 (0.83-1.09) H 07/31/18 04:50 Assessment/Plan CXR reviewed (no report): rotated to R. no effusions (angles sharp). no pulmonary edema s/p fall: -chronic weakness and balance issues, has been stable without recent falls. -recently increased weakness due to metolazone effect, likely acutely exacerbated yest by further volume depletion and significant hypokalemia -no head trauma per pt and son (reliable historians) -f/u CT head -replete K (ordered for 60 meq); gentle IVF (50 cc/hr)--repeat labs at 3 pm today -cannot stop eliquis (mobile thrombus on [place] surface of Watchman device, caused recent CVA) -son agrees to pay for 24 hr aide at home, at least until pt strength improves once K/volume status repleted RICKIE: -baseline creat < 1.0. has been stable in 1.3-1.4 range on metolazone for few weeks -bun/creat here c/w prerenal azotemia. -metolazone d/c'd -plan to hold torsemide (100 qd home dose) and spironolactone (12.5 qd) x 2 days , then resume prior dose -has weekly labs set up by me already--will f/u next week k and creatinine diast CHF: -recent wt 153 (from 156) since diuretic regimen increased -ongoing sob when lays in bed is not likely chf sx, given she is clearly intravascularly volume depleted -no signs chf here -diuretic plan as above afib: -persitent afib, HRs at times rapid but overall well controlled -cont home diltiazem and metoprolol regimen -must remain on eliquis 5mg bid (note: initially was on 2.5 bid for many weeks after the CVA, but repeat SARI at [place] showed persistent mobile thrombus--dose increased by EP with plans for repeat SARI at [place]) h/o anemia, recurrent occult GIBs: -hgb stable 12s-13s for many weeks on current eliquis regimen
[2018-07-31 11:09] LABS: ANION GAP 11 MMOL/L (8-16); BLOOD UREA NITROGEN 63 mg/dL (7-18); CALCIUM 9.2 mg/dL (8.5-10.1); CHLORIDE 85 mmol/L (98-107); CO2 38 mmol/L (21-32); CREATININE 1.5 mg/dL (0.55-1.3); GLUCOSE,RANDOM 132 mg/dL (74-106); POTASSIUM 3.3 mmol/L (3.5-5.1); SODIUM 135 mmol/L (136-145)
[2018-07-31] MEDS ORDERED: ESCITALOPRAM OXALATE 10 MG TABLET (FP) PO ONE (16:40)
[2018-07-31] MEDS ORDERED: dilTIAZem HCL 60 MG TABLET (FP) PO ONE (16:40)
[2018-07-31] MEDS ORDERED: APIXABAN 5 MG TABLET PO ONE (16:40)
[2018-07-31] MEDS ORDERED: PANTOPRAZOLE 40 MG TABLET (FP) PO ONE (16:41)
[2018-07-31] MEDS ORDERED: dilTIAZem HCL 60 MG TABLET (FP) ONE (16:57)
[2018-07-31] MEDS ORDERED: PANTOPRAZOLE 40 MG TABLET (FP) ONE (16:57)
[2018-07-31] MEDS ORDERED: ESCITALOPRAM OXALATE 10 MG TABLET (FP) ONE (16:58)
--- NOTE | 2018-07-31 17:06 | HP ---
Admitting History and Physical - Admission Chief Complaint: fall History of Present Illness: 87 year old female from [facility] history of HTN, HLD, A-fib s/p watchman procedure on eliquis, prior CVA, diastolic CHF, sent to the ED for unwitnessed fall while going from bathroom to bed. Fell back backwards on carpet, denies hitting her head or LOC. Able to ambulate with walker. evaluated by cardiology at ER -- Per 's note well known to office, seen on 07/29. pt has known diast chf, recently c/o'd of incr sob and wt up 158 lbs (approx 4 wks ago). was already on torsemide 100 qd and spironolactone. given metolazone 1.25mg once a week for several weeks, with stable K on serial labs and creat stable in 1.3-1.4 range wt remained stable at 153 lbs on that regimen. metolazone incrementally increased, recently to 4x/week. this week son noted pt more weak (generalized), less functional. on 07/29 i ordered stop metolazone and resume on 08/04 at once a week. pt has chronic sx of sob when first lays in bed, ongoing for at least a couple of months--stable. no other sob noted presently denies sob. denies cp. denies new neuro deficits (chronic speech/word finding difficulty since last stroke--stable) During ER visit plan agreed on to replace lytes, slowly hydrate, and son agreed to hire aide for 24 hour care post discharge to assure for safe discharge. Arrangements also include physical therapy at [facility]. 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 Cardiovascular: Yes: AFIB, CHF (chronic diastolic) Heme/Onc: Yes: Cancer (breast) Endocrine: Yes: Hypothyroidism - Smoking History Smoking history: Former smoker Have you smoked in the past 12 months: No If you are a former smoker, when did you quit?: 1989 - Alcohol/Substance Use Hx Alcohol Use: No - Social History Usual Living Arrangement: Yes: Assisted Living ADL: Support Services History of Recent Travel: No Home Medications - Allergies Allergies/Adverse Reactions: Allergies Allergy/AdvReac Type Severity Reaction Status Date / Time Penicillins Allergy Severe Itching Verified 07/31/18 04:26 epinephrine AdvReac Severe Verified 07/31/18 04:26 codeine AdvReac Unknown Vomiting Verified 07/31/18 04:26 - Home Medications Home Medications: Ambulatory Orders Apixaban [Eliquis -] 5 mg PO Q12H 07/31/18 Atorvastatin Calcium 10 mg PO DAILY 07/31/18 Cholecalciferol (Vitamin D3) [Vitamin D] 2,000 unit PO DAILY 07/31/18 Diltiazem HCl [Diltiazem 24Hr ER] 180 mg PO DAILY 07/31/18 Diltiazem [Cardizem -] 30 mg PO TID PRN 07/31/18 Escitalopram Oxalate [Lexapro -] 5 mg PO DAILY 07/31/18 Lactase 6,000 unit PO BID PRN 07/31/18 Latanoprost/Pf [Latanoprost 0.005% Eye Drop] 7.5 ml OU DAILY 07/31/18 Metoprolol Succinate 25 mg PO DAILY 07/31/18 Pantoprazole Sodium 40 mg PO DAILY 07/31/18 Polyethylene Glycol 3350 [Gavilax] 17 gm PO PRN PRN 07/31/18 Potassium Chloride 20 meq PO BID 07/31/18 Rivastigmine 1 each TD Q24H 07/31/18 Simethicone [Gas-X] 125 mg PO PRN PRN 07/31/18 Spironolactone 12.5 mg PO DAILY 07/31/18 Torsemide 100 mg PO DAILY 07/31/18 traZODone HCL [Trazodone HCl] 50 mg PO HS 07/31/18 Review of Systems - Review of Systems Constitutional: denies: Chills, Diaphoresis, Fever Eyes: reports: No Symptoms HENT: reports: No Symptoms Neck: reports: No Symptoms Cardiovascular: reports: Shortness of Breath Respiratory: reports: SOB, SOB on Exertion Gastrointestinal: reports: No Symptoms Genitourinary: reports: No Symptoms Breasts: reports: No Symptoms Reported Musculoskeletal: reports: No Symptoms, Muscle Weakness Integumentary: reports: No Symptoms Neurological: reports: Pre-Existing Deficit, Unsteady Gait Endocrine: reports: No Symptoms Hematology/Lymphatic: reports: No Symptoms Psychiatric: reports: No Symptoms Physical Examination Vital Signs: Vital Signs Temperature 98.4 F 07/31/18 15:33 Pulse Rate 72 07/31/18 15:33 Respiratory Rate 17 07/31/18 15:33 Blood Pressure 140/52 L 07/31/18 15:33 O2 Sat by Pulse Oximetry (%) 100 07/31/18 15:33 Constitutional: Yes: No Distress, Calm Eyes: Yes: WNL, Conjunctiva Clear HENT: Yes: Atraumatic, Normocephalic Neck: Yes: Supple, Trachea Midline Cardiovascular: Yes: Pulse Irregular Respiratory: Yes: CTA Bilaterally Gastrointestinal: Yes: Normal Bowel Sounds ...Rectal Exam: Yes: Deferred Renal/: Yes: WNL Breast(s): Yes: WNL Musculoskeletal: Yes: WNL Extremities: Yes: WNL Edema: No Peripheral Pulses WNL: Yes Integumentary: Yes: WNL Neurological: Yes: Alert, Oriented Psychiatric: Yes: Alert Labs: CBC, BMP 07/31/18 04:50 07/31/18 10:20 Problem List - Problems (1) Accidental fall Code(s): W19.XXXA - UNSPECIFIED FALL, INITIAL ENCOUNTER (2) Dehydration Code(s): E86.0 - DEHYDRATION (3) Hypokalemia Code(s): E87.6 - HYPOKALEMIA (4) Atrial fibrillation Code(s): I48.91 - UNSPECIFIED ATRIAL FIBRILLATION Qualifiers: Atrial fibrillation type: chronic Qualified Code(s): I48.2 - Chronic atrial fibrillation (5) Chronic diastolic heart failure Code(s): I50.32 - CHRONIC DIASTOLIC (CONGESTIVE) HEART FAILURE (6) Hyperlipidemia Code(s): E78.5 - HYPERLIPIDEMIA, UNSPECIFIED Qualifiers: Hyperlipidemia type: unspecified hyperlipidemia Qualified Code(s): E78.5 - Hyperlipidemia, unspecified (7) Hypertension Code(s): I10 - ESSENTIAL (PRIMARY) HYPERTENSION Qualifiers: Hypertension type: essential hypertension Qualified Code(s): I10 - Essential (primary) hypertension (8) Hypothyroidism Code(s): E03.9 - HYPOTHYROIDISM, UNSPECIFIED Qualifiers: Hypothyroidism type: unspecified Qualified Code(s): E03.9 - Hypothyroidism , unspecified
[2018-07-31 17:32] LABS: ALBUMIN 3.6 g/dl (3.4-5.0); ALK PHOS 93 U/L (45-117); ANION GAP 11 MMOL/L (8-16); BILIRUBIN,TOTAL 0.8 mg/dL (0.2-1); BLOOD UREA NITROGEN 62 mg/dL (7-18); CALCIUM 9.6 mg/dL (8.5-10.1); CHLORIDE 88 mmol/L (98-107); CO2 37 mmol/L (21-32); CREATININE 1.6 mg/dL (0.55-1.3); GLUCOSE,RANDOM 128 mg/dL (74-106); POTASSIUM 3.6 mmol/L (3.5-5.1); SGOT/AST 18 U/L (15-37); SGPT/ALT 18 U/L (13-61); SODIUM 136 mmol/L (136-145); TOT PROT 7.4 g/dl (6.4-8.2)
[2018-07-31 17:45] VITALS: BP 138/59; PULSE 68; TEMP 98.1
--- NOTE | 2018-07-31 23:14 | EKG ---
Test Reason : Blood Pressure : / mmHG Vent. Rate : 070 BPM Atrial Rate : 070 BPM P-R Int : 238 ms QRS Dur : 118 ms QT Int : 456 ms P-R-T Axes : 067 013 094 degrees QTc Int : 492 ms SINUS RHYTHM WITH 1ST DEGREE A-V BLOCK LEFT VENTRICULAR HYPERTROPHY WITH QRS WIDENING AND REPOLARIZATION ABNORMALITY PROLONGED QT ABNORMAL ECG WHEN COMPARED WITH ECG OF 15-APR-2018 09:06, SINUS RHYTHM HAS REPLACED ATRIAL FLUTTER QRS DURATION HAS INCREASED ST NOW DEPRESSED IN INFERIOR LEADS Confirmed by NESTOR ANDRADE MD ([id number]) on 07/31/2018 11:14:11 PM Referred By: Confirmed By:NETSOR ANDRADE MD
--- NOTE | 2018-08-01 11:47 | DS ---
Physical Examination Vital Signs: Vital Signs Temperature 98.1 F 07/31/18 17:32 Pulse Rate 68 07/31/18 17:32 Respiratory Rate 18 07/31/18 17:32 Blood Pressure 138/59 L 07/31/18 17:32 O2 Sat by Pulse Oximetry (%) 98 07/31/18 17:32 Findings/Remarks: 87 year old female from [facility] assisted [facility] facility history of HTN, HLD, A-fib s/p watchman procedure on eliquis, prior CVA, diastolic CHF, sent to the ED for unwitnessed fall while going from bathroom to bed. Fell back backwards on carpet, denies hitting her head or LOC. Able to ambulate with walker. evaluated by cardiology at ER -- Per 's note well known to office, seen on 07/29. pt has known diast chf, recently c/o'd of incr sob and wt up 158 lbs (approx 4 wks ago). was already on torsemide 100 qd and spironolactone. given metolazone 1.25mg once a week for several weeks, with stable K on serial labs and creat stable in 1.3-1.4 range wt remained stable at 153 lbs on that regimen. metolazone incrementally increased, recently to 4x/week. this week son noted pt more weak (generalized), less functional. on 07/29 i ordered stop metolazone and resume on 08/04 at once a week. pt has chronic sx of sob when first lays in bed, ongoing for at least a couple of months--stable. no other sob noted presently denies sob. denies cp. denies new neuro deficits (chronic speech/word finding difficulty since last stroke--stable) During ER visit plan agreed on to replace lytes, slowly hydrate, and son agreed to hire aide for 24 hour care post discharge to assure for safe discharge. Arrangements also include physical therapy at [facility]. Last labs ordered at 4pm per Cardio repeat labs discussed with ER attending Patient discharged home will follow up labs as out patient and follow up with Cardiology next week Labs: CBC, BMP 07/31/18 04:50 07/31/18 17:00 Discharge Summary Reason For Visit: KYPOKALEMIA; DEHYDRATION; ACCIDENT, FALL Current Active Problems Accidental fall (Acute) Dehydration (Acute) Hypokalemia (Acute) Chronic Kidney disease acute kidney injury diastolic heart failure Obstructive sleep apnea atrial fibrillation s/p watchman procedure anemia s/p multiple GI bleeds Condition: Fair - Instructions Referrals: Elva Lugo [Primary Care Provider] - - Home Medications Comprehensive Discharge Medication List: Ambulatory Orders Apixaban [Eliquis -] 5 mg PO Q12H 07/31/18 Atorvastatin Calcium 10 mg PO DAILY 07/31/18 Cholecalciferol (Vitamin D3) [Vitamin D3] 2,000 unit PO DAILY 07/31/18 Diltiazem HCl [Diltiazem 24Hr ER] 180 mg PO DAILY 07/31/18 Diltiazem [Cardizem -] 30 mg PO TID PRN 07/31/18 Escitalopram Oxalate [Lexapro -] 5 mg PO DAILY 07/31/18 Lactase 6,000 unit PO BID PRN 07/31/18 Latanoprost/Pf [Latanoprost 0.005% Eye Drop] 7.5 ml OU DAILY 07/31/18 Metoprolol Succinate 25 mg PO DAILY 07/31/18 Pantoprazole Sodium 40 mg PO DAILY 07/31/18 Polyethylene Glycol 3350 [Gavilax] 17 gm PO PRN PRN 07/31/18 Potassium Chloride 20 meq PO BID 07/31/18 Rivastigmine 1 each TD Q24H 07/31/18 Simethicone [Gas-X] 125 mg PO PRN PRN 07/31/18 Spironolactone 12.5 mg PO DAILY 07/31/18 Torsemide 100 mg PO DAILY 07/31/18 traZODone HCL [Trazodone HCl] 50 mg PO HS 07/31/18
== END 2018-07-31 17:59 ==
LOC: JER 04:02 → JERBED 07:36
PROVIDERS: ADMIT Family Medicine; ATTEND Family Medicine
PROC: 3E0337Z Introduction of Electrolytic and Water Balance Substance into Peripheral Vein, Percutaneous Approach (ICD-10-PCS; principal; 2018-07-31)
DX: E87.6 Hypokalemia (principal); E86.0 Dehydration; N17.9 Acute kidney failure, unspecified; I11.0 Hypertensive heart disease with heart failure; I48.91 Unspecified atrial fibrillation; I50.32 Chronic diastolic (congestive) heart failure; E03.9 Hypothyroidism, unspecified; E78.5 Hyperlipidemia, unspecified; D64.9 Anemia, unspecified; Z86.73 Personal history of transient ischemic attack (TIA), and cerebral infarction without residual deficits; Z79.01 Long term (current) use of anticoagulants; Z88.6 Allergy status to analgesic agent; Z88.0 Allergy status to penicillin; W18.39XA Other fall on same level, initial encounter; Y93.89 Activity, other specified; Y92.122 Bedroom in nursing home as the place of occurrence of the external cause
CPT/HCPCS: 36415; 70450-TC; 71045-TC-FY; 80048; 80053; 81003; 85025; 85610; 85730; 93005; 93010; 96360; 96361; 99285-25; G0378; J7030